=== PATIENT | female | born 1950 | race African-American/Black ===

== ENCOUNTER 2023-04-02 12:54 | Inpatient (IN) | payer MEDICARE, BC ==
[2023-04-02 13:47] LABS: #Basophils 0.1 thou/uL (0.0-0.2); #Eosinphils 0.2 thou/uL (0.0-0.7); #Monocytes 0.4 thou/uL (0.11-0.59); #Neutrophils 3.1 thou/uL (1.40-6.50); %Basophils 1.1 % (0.0-1.0); %Eosinophils 4.5 % (0.0-10.0); %Lymphocytes 17.5 % (21.0-51.0); %Monocytes 9.3 % (0.0-10.0); %Neutrophils 67.4 % (42.0-75.0); Hemoglobin 11.4 g/dL (12.0-16.0); Mean Corpuscular HGB CONC 32.2 g/dL (32.0-36.0); Mean Corpuscular Hemoglobin 32.6 pg (27.0-31.0); Mean Corpuscular Volume 101.1 fl (78.0-98.0); Mean Platelet Volume 9.6 fL (7.4-10.4); Platelet Count 166 10x3/uL (130-400); RBC Distribution Width 16.6 % (11.5-14.5); White Blood Cell (WBC) Count 4.6 10x3/uL (4.8-10.8)
[2023-04-02 14:07] LABS: ALT (SGPT) 8 U/L (8-55); AST (SGOT) 10 U/L (5-34); Albumin 3.8 g/dL (3.4-4.8); Alkaline Phosphatase 119 U/L (40-110); Anion Gap 20 mmol/L (10-20); BUN (Urea Nitrogen) 82 mg/dL (9.8-20.1); Bilirubin, Total 0.4 mg/dL (0.2-1.2); Calc. Creatinine Clearance 0 mL/min (70-130); Calcium 9.6 mg/dL (7.8-10.44); Carbon Dioxide 23 mmol/L (23-31); Chloride 100 mmol/L (98-107); Estimated GFR 4; Globulin 2.7 g/dL (2.4-3.5); Glucose 104 mg/dL (83-110); Potassium 4.4 mmol/L (3.5-5.1); Protein, Total 6.5 g/dL (5.8-8.1); Sodium 139 mmol/L (136-145)
[2023-04-02 14:08] LABS: INR-International Normal Ratio 1.1; PTT 28.3 sec (22.9-36.1); Prothrombin Time 14.5 sec (12.0-14.7)
[2023-04-02] MEDS ORDERED: Dextrose 50% Abboject 50 ML SYRINGE SLOW IVP PRN (16:08)
[2023-04-02] MEDS ORDERED: HumaLOG 300 UNITS/3 ML VIAL SC PRN ×2 (16:08)
[2023-04-02] MEDS ORDERED: Dextrose 5% in Water 1,000 ML IV PRN (16:08)
[2023-04-02] MEDS ORDERED: Ondansetron PF 4 MG/2 ML Vial IVP PRN (16:08)
[2023-04-02] MEDS ORDERED: Glucagon 1 MG/ML KIT IM PRN (16:08)
[2023-04-02] MEDS ORDERED: hydrALAZINE 20 MG/ML VIAL SLOW IVP PRN (16:08)
[2023-04-02] MEDS ORDERED: Ondansetron ODT 4 MG TAB PO PRN (16:08)
[2023-04-02 21:17] LABS: Hemoglobin 12.3 g/dL (12.0-16.0); Platelet Count 153 10x3/uL (130-400)
[2023-04-03] MEDS: Sodium Chloride 0.9% 1,000 ML IV SCH ×2 (00:13→21:10)
[2023-04-03 05:24] LABS: #Eosinphils 0.2 thou/uL (0.0-0.7); #Monocytes 0.4 thou/uL (0.11-0.59); #Neutrophils 2.9 thou/uL (1.40-6.50); %Basophils 0.9 % (0.0-1.0); %Eosinophils 4.7 % (0.0-10.0); %Lymphocytes 19.4 % (21.0-51.0); %Monocytes 9.9 % (0.0-10.0); %Neutrophils 65.1 % (42.0-75.0); Mean Corpuscular HGB CONC 32.4 g/dL (32.0-36.0); Mean Corpuscular Hemoglobin 32.6 pg (27.0-31.0); Mean Corpuscular Volume 100.6 fl (78.0-98.0); Mean Platelet Volume 9.7 fL (7.4-10.4); Platelet Count 149 10x3/uL (130-400); RBC Distribution Width 16.6 % (11.5-14.5); Red Blood Cell (RBC) Count 3.37 mill/uL (4.20-5.40); White Blood Cell (WBC) Count 4.4 10x3/uL (4.8-10.8)
[2023-04-03 05:43] LABS: Anion Gap 20 mmol/L (10-20); BUN (Urea Nitrogen) 81 mg/dL (9.8-20.1); Calc. Creatinine Clearance 7 mL/min (70-130); Calcium 9.3 mg/dL (7.8-10.44); Carbon Dioxide 19 mmol/L (23-31); Chloride 102 mmol/L (98-107); Estimated GFR 4; Glucose 79 mg/dL (83-110); Potassium 4.3 mmol/L (3.5-5.1); Sodium 137 mmol/L (136-145)
[2023-04-03] MEDS ORDERED: cloNIDine 0.2mg/24 Hour PATCH TD SCH (18:00)
[2023-04-03] MEDS: Sevelamer Carbonate 800 MG TAB PO SCH (19:33)
[2023-04-03] MEDS: Sertraline 25 MG TAB PO SCH (21:07)
[2023-04-03 23:59] LABS: HBSAg Index 0.15 S/CO (0-0.99); Hep B Core Total Ab Non-Reactive (NonReactive); Hep B Core Total Index 0.18 S/CO (0-0.79); Hep B Surf Ag Non-Reactive S/CO (NonReactive); Hep C IgG Ab Non-Reactive S/CO (NonReactive)
[2023-04-04 00:01] LABS: HBSAB Concentration 428.34 mIU/mL; Hep B Surf AB Reactive (NonReactive)
[2023-04-04] MEDS: Sevelamer Carbonate 800 MG TAB PO SCH ×3 (08:39→19:14)
[2023-04-04] MEDS: Hydrocortisone 10 mg Tablet PO SCH (08:39)
[2023-04-04] MEDS ORDERED: METOPROLOL SUCCINATE 25 MG PO SCH (09:00)
[2023-04-04] MEDS ORDERED: Metoprolol Tartrate 25 MG TAB PO SCH (16:30)
[2023-04-04] MEDS: Acetaminophen 325 MG TAB PO PRN (16:54)
[2023-04-04] MEDS ORDERED: GoLYTELY 4,000 ml Bottle PO SCH (17:00)
[2023-04-04] MEDS: Sodium Chloride 0.9% 1,000 ML IV SCH (19:26)
[2023-04-04] MEDS: Sertraline 25 MG TAB PO SCH (20:18)
[2023-04-05] MEDS: Acetaminophen 325 MG TAB PO PRN (00:31)
[2023-04-05] MEDS ORDERED: Methimazole 5 MG TAB PO SCH (09:00)
[2023-04-05] MEDS: Hydrocortisone 10 mg Tablet PO SCH (09:40)
[2023-04-05] MEDS: Sevelamer Carbonate 800 MG TAB PO SCH ×3 (09:41→16:35)
[2023-04-05 10:21] VITALS: BMI 26.9
[2023-04-05] MEDS: Sodium Chloride 0.9% 1,000 ML IV SCH (13:23)
[2023-04-05] MEDS: Sertraline 25 MG TAB PO SCH (21:01)
[2023-04-06 04:32] LABS: #Eosinphils 0.2 thou/uL (0.0-0.7); #Monocytes 0.4 thou/uL (0.11-0.59); #Neutrophils 2.4 thou/uL (1.40-6.50); %Eosinophils 4.4 % (0.0-10.0); %Monocytes 9.7 % (0.0-10.0); %Neutrophils 61.6 % (42.0-75.0); Mean Corpuscular HGB CONC 31.2 g/dL (32.0-36.0); Mean Corpuscular Volume 102.6 fl (78.0-98.0); Mean Platelet Volume 9.6 fL (7.4-10.4); Platelet Count 139 10x3/uL (130-400); RBC Distribution Width 15.5 % (11.5-14.5); Red Blood Cell (RBC) Count 3.44 mill/uL (4.20-5.40); White Blood Cell (WBC) Count 3.8 10x3/uL (4.8-10.8)
[2023-04-06 04:58] LABS: Anion Gap 16 mmol/L (10-20); BUN (Urea Nitrogen) 40 mg/dL (9.8-20.1); Calc. Creatinine Clearance 9 mL/min (70-130); Calcium 8.8 mg/dL (7.8-10.44); Carbon Dioxide 21 mmol/L (23-31); Chloride 104 mmol/L (98-107); Estimated GFR 6; Glucose 103 mg/dL (83-110); Potassium 4.2 mmol/L (3.5-5.1); Sodium 137 mmol/L (136-145)
[2023-04-06] MEDS ORDERED: Lidocaine-Prilocaine 2.5% Cream 5 GM TUBE TOP SCH (08:45)
[2023-04-06] MEDS: Hydrocortisone 10 mg Tablet PO SCH (09:37)
[2023-04-06] MEDS: Sevelamer Carbonate 800 MG TAB PO SCH ×3 (09:37→17:43)
[2023-04-06] MEDS: Sodium Chloride 0.9% 1,000 ML IV SCH (09:38)
[2023-04-06 15:27] LABS: #Eosinphils 0.2 thou/uL (0.0-0.7); #Monocytes 0.4 thou/uL (0.11-0.59); #Neutrophils 2.6 thou/uL (1.40-6.50); %Eosinophils 3.8 % (0.0-10.0); %Lymphocytes 18.7 % (21.0-51.0); %Monocytes 10.3 % (0.0-10.0); %Neutrophils 65.9 % (42.0-75.0); Hemoglobin 12.5 g/dL (12.0-16.0); Mean Corpuscular HGB CONC 31.7 g/dL (32.0-36.0); Mean Corpuscular Hemoglobin 32.6 pg (27.0-31.0); Mean Corpuscular Volume 102.9 fl (78.0-98.0); Mean Platelet Volume 9.8 fL (7.4-10.4); Platelet Count 134 10x3/uL (130-400); RBC Distribution Width 15.4 % (11.5-14.5); Red Blood Cell (RBC) Count 3.83 mill/uL (4.20-5.40); White Blood Cell (WBC) Count 3.9 10x3/uL (4.8-10.8)
[2023-04-06 15:56] LABS: Anion Gap 14 mmol/L (10-20); BUN (Urea Nitrogen) 15 mg/dL (9.8-20.1); Calc. Creatinine Clearance 18 mL/min (70-130); Calcium 9.3 mg/dL (7.8-10.44); Carbon Dioxide 29 mmol/L (23-31); Chloride 100 mmol/L (98-107); Estimated GFR 13; Glucose 88 mg/dL (83-110); Potassium 3.9 mmol/L (3.5-5.1); Sodium 139 mmol/L (136-145)
[2023-04-06 19:57] VITALS: BP 137/67; TEMP 98
== END 2023-04-06 20:25 | disposition home or self-care (01) | DRG 377 ==
LOC: ERS 12:54 → 2NO 15:29 → OBSVTOIN 04-03 15:02
PROVIDERS: ADMIT Internal Medicine; ATTEND Internal Medicine
PROC: 5A1D70Z Performance of Urinary Filtration, Intermittent, Less than 6 Hours Per Day (ICD-10-PCS; principal; 2023-04-06)
DX: K92.1 Melena (principal); N18.6 End stage renal disease; I13.2 Hypertensive heart and chronic kidney disease with heart failure and with stage 5 chronic kidney disease, or end stage renal disease; E11.22 Type 2 diabetes mellitus with diabetic chronic kidney disease; I25.10 Atherosclerotic heart disease of native coronary artery without angina pectoris; I50.9 Heart failure, unspecified; F03.90 Unspecified dementia, unspecified severity, without behavioral disturbance, psychotic disturbance, mood disturbance, and anxiety; E05.90 Thyrotoxicosis, unspecified without thyrotoxic crisis or storm; E78.5 Hyperlipidemia, unspecified; E78.00 Pure hypercholesterolemia, unspecified; Z88.8 Allergy status to other drugs, medicaments and biological substances; Z99.2 Dependence on renal dialysis; Z85.038 Personal history of other malignant neoplasm of large intestine; Z86.73 Personal history of transient ischemic attack (TIA), and cerebral infarction without residual deficits; Z90.710 Acquired absence of both cervix and uterus; Z90.49 Acquired absence of other specified parts of digestive tract; Z98.890 Other specified postprocedural states
CPT/HCPCS: 36415; 36416; 80048; 80053; 85025; 85610; 85730; 86704; 86850; 86900; 86901; 87324; 87449; 90935; 96374; 99284; G0257; G0378; J0360; J7050

== ENCOUNTER 2023-05-09 11:59 | Emergency (ER) | payer MEDICARE, BC ==
[2023-05-09 13:04] LABS: #Basophils 0.1 thou/uL (0.0-0.2); #Eosinphils 0.1 thou/uL (0.0-0.7); #Monocytes 0.4 thou/uL (0.11-0.59); #Neutrophils 2.9 thou/uL (1.40-6.50); %Basophils 1.1 % (0.0-1.0); %Eosinophils 2.1 % (0.0-10.0); %Monocytes 8.9 % (0.0-10.0); %Neutrophils 65.9 % (42.0-75.0); Hematocrit 40.1 % (36.0-47.0); Hemoglobin 13.1 g/dL (12.0-16.0); Mean Corpuscular HGB CONC 32.7 g/dL (32.0-36.0); Mean Corpuscular Volume 94.8 fl (78.0-98.0); Mean Platelet Volume 9.9 fL (7.4-10.4); Platelet Count 185 10x3/uL (130-400); RBC Distribution Width 14.9 % (11.5-14.5); Red Blood Cell (RBC) Count 4.23 mill/uL (4.20-5.40); White Blood Cell (WBC) Count 4.4 10x3/uL (4.8-10.8)
[2023-05-09 13:31] LABS: ALT (SGPT) 8 U/L (8-55); AST (SGOT) 13 U/L (5-34); Albumin 3.9 g/dL (3.4-4.8); Alkaline Phosphatase 84 U/L (40-110); Anion Gap 20 mmol/L (10-20); BUN (Urea Nitrogen) 74 mg/dL (9.8-20.1); Bilirubin, Total 0.3 mg/dL (0.2-1.2); Calc. Creatinine Clearance 0 mL/min (70-130); Calcium 9.7 mg/dL (7.8-10.44); Carbon Dioxide 25 mmol/L (23-31); Chloride 98 mmol/L (98-107); Estimated GFR 5; Globulin 3.3 g/dL (2.4-3.5); Glucose 112 mg/dL (83-110); Potassium 4.1 mmol/L (3.5-5.1); Protein, Total 7.2 g/dL (5.8-8.1); Sodium 139 mmol/L (136-145)
[2023-05-09 13:34] LABS: Troponin I Less than 0.010 ng/mL (< 0.028)
== END 2023-05-09 15:35 | disposition home or self-care (01) ==
LOC: ERS 11:59
DX: R53.81 Other malaise (principal); R05.9 Cough, unspecified; I13.2 Hypertensive heart and chronic kidney disease with heart failure and with stage 5 chronic kidney disease, or end stage renal disease; N18.6 End stage renal disease; I25.10 Atherosclerotic heart disease of native coronary artery without angina pectoris; I50.9 Heart failure, unspecified; E03.9 Hypothyroidism, unspecified; E78.00 Pure hypercholesterolemia, unspecified
CPT/HCPCS: 36415; 71045; 80053; 83880; 84484; 85025; 93005

== ENCOUNTER 2023-05-24 13:38 | Inpatient (IN) | payer MEDICARE, BC ==
[2023-05-24 14:39] LABS: #Eosinphils 0.1 thou/uL (0.0-0.7); #Monocytes 0.3 thou/uL (0.11-0.59); %Basophils 0.9 % (0.0-1.0); %Eosinophils 1.2 % (0.0-10.0); %Lymphocytes 20.5 % (21.0-51.0); %Monocytes 7.4 % (0.0-10.0); %Neutrophils 69.8 % (42.0-75.0); Hematocrit 42.9 % (36.0-47.0); Hemoglobin 13.9 g/dL (12.0-16.0); Mean Corpuscular HGB CONC 32.4 g/dL (32.0-36.0); Mean Corpuscular Hemoglobin 30.5 pg (27.0-31.0); Mean Corpuscular Volume 94.1 fl (78.0-98.0); Mean Platelet Volume 10.5 fL (7.4-10.4); Platelet Count 183 10x3/uL (130-400); RBC Distribution Width 14.6 % (11.5-14.5); Red Blood Cell (RBC) Count 4.56 mill/uL (4.20-5.40); White Blood Cell (WBC) Count 4.3 10x3/uL (4.8-10.8)
[2023-05-24] MEDS ORDERED: Ondansetron PF 4 MG/2 ML Vial ONE (14:56)
[2023-05-24] MEDS ORDERED: Acetaminophen 500 MG TAB ONE (14:56)
[2023-05-24 15:10] LABS: Troponin I Less than 0.010 ng/mL (< 0.028)
[2023-05-24 15:12] LABS: ALT (SGPT) 7 U/L (8-55); AST (SGOT) 13 U/L (5-34); Albumin 4.3 g/dL (3.4-4.8); Alkaline Phosphatase 79 U/L (40-110); Anion Gap 23 mmol/L (10-20); BUN (Urea Nitrogen) 44 mg/dL (9.8-20.1); Bilirubin, Total 0.6 mg/dL (0.2-1.2); Calc. Creatinine Clearance 0 mL/min (70-130); Calcium 9.8 mg/dL (7.8-10.44); Carbon Dioxide 24 mmol/L (23-31); Chloride 97 mmol/L (98-107); Estimated GFR 5; Globulin 3.5 g/dL (2.4-3.5); Glucose 67 mg/dL (83-110); Lipase 124 U/L (8-78); Potassium 4.4 mmol/L (3.5-5.1); Protein, Total 7.8 g/dL (5.8-8.1); Sodium 140 mmol/L (136-145)
[2023-05-24] MEDS ORDERED: fentaNYL 50 mcg/mL 1 mL Vial ONE (17:14)
[2023-05-24] MEDS ORDERED: hydrALAZINE 20 MG/ML VIAL ONE (18:53)
[2023-05-24 19:30] LABS: Bacteria/HPF None Seen HPF (None Seen); Bilirubin Negative (Negative); Blood, Urine Negative (Negative); CAUTI Indications for Culture Fever or rigors; Clarity Clear (Clear); Glucose, Urine (Dipstick) Normal (Negative); Ketone, Urine Trace mg/dL (Negative); Leukocyte Negative Leu/uL (Negative); Nitrite Negative (Negative); Protein, Urine (Dipstick) 70 mg/dL (Neg-Trace); RBC/HPF 0-3 HPF (0-3); Specific Gravity, Urine 1.008 (1.002-1.036); Urobilinogen Normal mg/dL (Less than 2); WBC/HPF 0-3 HPF (0-3); pH, Urine 8.5 (5.0-9.0)
[2023-05-24 19:32] LABS: Urine Culture Reflex No No
[2023-05-24] MEDS ORDERED: Piperacillin/Tazobactam 3.375 GM in Sodium Chloride 0.9% 100 ML IVPB SCH (22:15)
[2023-05-24] MEDS ORDERED: Vancomycin Diaylsis Sliding Scale (Wt 71-99) FS SCH (23:45)
[2023-05-24 23:51] VITALS: BMI 25.0
[2023-05-24] MEDS: Vancomycin 1.5 GRAM/300 ML BAG 1.5 GM in Premix Bag 1 BAG IVPB SCH (23:55)
[2023-05-24] MEDS: Piperacillin/Tazobactam 3.375 GM in Sodium Chloride 0.9% 100 ML IVPB SCH (23:55)
[2023-05-25] MEDS: Piperacillin/Tazobactam 3.375 GM in Sodium Chloride 0.9% 100 ML IVPB SCH (00:59)
[2023-05-25] MEDS: Vancomycin 1.5 GRAM/300 ML BAG 1.5 GM in Premix Bag 1 BAG IVPB SCH (01:00)
[2023-05-25] MEDS ORDERED: Piperacillin/Tazobactam 3.375 GM in Sodium Chloride 0.9% 100 ML IVPB SCH (05:00)
[2023-05-25] MEDS ORDERED: Dicyclomine 20 MG TAB PO PRN (08:11)
[2023-05-25] MEDS: Hydrocortisone 10 mg Tablet PO SCH (09:10)
[2023-05-25] MEDS: Sevelamer Carbonate 800 MG TAB PO SCH ×3 (09:10→16:42)
[2023-05-25] MEDS: Aspirin Chewable 81 MG TAB PO SCH (09:14)
[2023-05-25] MEDS: Losartan 25 MG TAB PO SCH (09:15)
[2023-05-25] MEDS ORDERED: traMADol HCl 50 MG TAB PO PRN (09:38)
[2023-05-25] MEDS ORDERED: Acetaminophen 325 MG TAB PO PRN (09:38)
[2023-05-25] MEDS ORDERED: HYDROcodone/Acetaminophen 5/325 mg Tablet PO PRN (11:59)
[2023-05-25] MEDS ORDERED: HYDROcodone/Acetaminophen 5/325 mg Tablet PO SCH (12:00)
[2023-05-25] MEDS ORDERED: Lidocaine 4% Patch TD SCH (12:00)
[2023-05-25] MEDS: Lidocaine 4% Patch TD SCH (13:00)
[2023-05-25] MEDS: Sertraline 25 MG TAB PO SCH (20:56)
[2023-05-26] MEDS: Transdermal Patch Removal TOP SCH (02:25)
[2023-05-26] MEDS: Hydrocortisone 10 mg Tablet PO SCH (08:42)
[2023-05-26] MEDS: Sevelamer Carbonate 800 MG TAB PO SCH ×3 (08:42→15:19)
[2023-05-26] MEDS: Losartan 25 MG TAB PO SCH (08:42)
[2023-05-26] MEDS: Aspirin Chewable 81 MG TAB PO SCH (08:42)
[2023-05-26] MEDS: Lidocaine 4% Patch TD SCH (12:17)
[2023-05-26 15:40] LABS: Hematocrit 37.9 % (36.0-47.0); Mean Corpuscular HGB CONC 31.7 g/dL (32.0-36.0); Mean Corpuscular Hemoglobin 30.2 pg (27.0-31.0); Mean Corpuscular Volume 95.2 fl (78.0-98.0); Mean Platelet Volume 10.2 fL (7.4-10.4); Platelet Count 164 10x3/uL (130-400); RBC Distribution Width 14.6 % (11.5-14.5); Red Blood Cell (RBC) Count 3.98 mill/uL (4.20-5.40); White Blood Cell (WBC) Count 6.2 10x3/uL (4.8-10.8)
[2023-05-26] MEDS ORDERED: GoLYTELY 4,000 ml Bottle PO SCH (16:00)
[2023-05-26 16:03] LABS: ALT (SGPT) Less than 7 U/L (8-55); AST (SGOT) 8 U/L (5-34); Albumin 3.4 g/dL (3.4-4.8); Alkaline Phosphatase 68 U/L (40-110); Anion Gap 16 mmol/L (10-20); BUN (Urea Nitrogen) 59 mg/dL (9.8-20.1); Bilirubin, Total 0.4 mg/dL (0.2-1.2); Calc. Creatinine Clearance 6 mL/min (70-130); Calcium 9.1 mg/dL (7.8-10.44); Carbon Dioxide 27 mmol/L (23-31); Chloride 97 mmol/L (98-107); Estimated GFR 4; Glucose 112 mg/dL (83-110); Phosphorus 5.8 mg/dL (2.3-4.7); Protein, Total 6.4 g/dL (5.8-8.1); Sodium 136 mmol/L (136-145)
[2023-05-26 16:13] LABS: Troponin I Less than 0.010 ng/mL (< 0.028)
[2023-05-26 18:38] LABS: Anion Gap 15 mmol/L (10-20); BUN (Urea Nitrogen) 21 mg/dL (9.8-20.1); Calc. Creatinine Clearance 14 mL/min (70-130); Calcium 9.8 mg/dL (7.8-10.44); Carbon Dioxide 27 mmol/L (23-31); Chloride 95 mmol/L (98-107); Estimated GFR 10; Glucose 83 mg/dL (83-110); Potassium 2.8 mmol/L (3.5-5.1); Sodium 134 mmol/L (136-145)
[2023-05-26] MEDS: Sertraline 25 MG TAB PO SCH (23:00)
[2023-05-27] MEDS: Transdermal Patch Removal TOP SCH (03:09)
[2023-05-27 05:32] LABS: #Basophils 0.1 thou/uL (0.0-0.2); #Eosinphils 0.1 thou/uL (0.0-0.7); #Monocytes 0.4 thou/uL (0.11-0.59); #Neutrophils 3.7 thou/uL (1.40-6.50); %Basophils 1.3 % (0.0-1.0); %Eosinophils 2.5 % (0.0-10.0); %Lymphocytes 17.4 % (21.0-51.0); %Monocytes 8.4 % (0.0-10.0); %Neutrophils 70.2 % (42.0-75.0); Hematocrit 40.6 % (36.0-47.0); Hemoglobin 12.7 g/dL (12.0-16.0); Mean Corpuscular HGB CONC 31.3 g/dL (32.0-36.0); Mean Corpuscular Hemoglobin 30.2 pg (27.0-31.0); Mean Corpuscular Volume 96.7 fl (78.0-98.0); Mean Platelet Volume 9.9 fL (7.4-10.4); Platelet Count 154 10x3/uL (130-400); RBC Distribution Width 14.6 % (11.5-14.5); White Blood Cell (WBC) Count 5.2 10x3/uL (4.8-10.8)
[2023-05-27 06:33] LABS: Anion Gap 13 mmol/L (10-20); BUN (Urea Nitrogen) 36 mg/dL (9.8-20.1); Calc. Creatinine Clearance 8 mL/min (70-130); Calcium 9.5 mg/dL (7.8-10.44); Carbon Dioxide 25 mmol/L (23-31); Chloride 96 mmol/L (98-107); Estimated GFR 5; Glucose 82 mg/dL (83-110); Potassium 3.8 mmol/L (3.5-5.1); Sodium 130 mmol/L (136-145)
[2023-05-27] MEDS ORDERED: Lidocaine 1% MPF 2 ML VIAL ONE (07:52)
[2023-05-27] MEDS ORDERED: Ketamine 50 MG/ML (10ML VIAL) ONE (08:18)
[2023-05-27] MEDS ORDERED: Lidocaine 1% PF 5 ML VIAL ONE (08:26)
[2023-05-27] MEDS ORDERED: PROPOFOL 200 MG/20 ML VIAL ONE (08:26)
[2023-05-27] MEDS: Sevelamer Carbonate 800 MG TAB PO SCH ×3 (11:29→18:22)
[2023-05-27] MEDS: Aspirin Chewable 81 MG TAB PO SCH (11:29)
[2023-05-27] MEDS: Hydrocortisone 10 mg Tablet PO SCH (11:29)
[2023-05-27] MEDS: Losartan 25 MG TAB PO SCH (11:30)
[2023-05-27] MEDS: Lidocaine 4% Patch TD SCH (14:25)
[2023-05-27] MEDS: Sertraline 25 MG TAB PO SCH (22:48)
[2023-05-28] MEDS: Transdermal Patch Removal TOP SCH (01:44)
[2023-05-28] MEDS ORDERED: Sucralfate 1 GM TAB PO SCH (08:30)
[2023-05-28] MEDS: Hydrocortisone 10 mg Tablet PO SCH (08:53)
[2023-05-28] MEDS: Aspirin Chewable 81 MG TAB PO SCH (08:54)
[2023-05-28] MEDS: Sevelamer Carbonate 800 MG TAB PO SCH ×3 (08:54→17:58)
[2023-05-28] MEDS: Losartan 25 MG TAB PO SCH (08:57)
[2023-05-28 11:59] LABS: #Eosinphils 0.1 thou/uL (0.0-0.7); #Monocytes 0.6 thou/uL (0.11-0.59); #Neutrophils 7.3 thou/uL (1.40-6.50); %Basophils 0.4 % (0.0-1.0); %Lymphocytes 9.9 % (21.0-51.0); %Monocytes 7.1 % (0.0-10.0); %Neutrophils 81.5 % (42.0-75.0); Hematocrit 40.2 % (36.0-47.0); Hemoglobin 12.7 g/dL (12.0-16.0); Mean Corpuscular HGB CONC 31.6 g/dL (32.0-36.0); Mean Corpuscular Hemoglobin 30.2 pg (27.0-31.0); Mean Corpuscular Volume 95.7 fl (78.0-98.0); Mean Platelet Volume 10.1 fL (7.4-10.4); Platelet Count 151 10x3/uL (130-400); RBC Distribution Width 14.7 % (11.5-14.5); White Blood Cell (WBC) Count 8.9 10x3/uL (4.8-10.8)
[2023-05-28] MEDS: Sucralfate 1 GM TAB PO SCH ×2 (12:16→17:58)
[2023-05-28] MEDS: Lidocaine 4% Patch TD SCH (12:16)
[2023-05-28 13:30] LABS: Anion Gap 18 mmol/L (10-20); BUN (Urea Nitrogen) 49 mg/dL (9.8-20.1); Calc. Creatinine Clearance 7 mL/min (70-130); Calcium 9.4 mg/dL (7.8-10.44); Carbon Dioxide 25 mmol/L (23-31); Chloride 96 mmol/L (98-107); Estimated GFR 4; Glucose 102 mg/dL (83-110); Potassium 3.8 mmol/L (3.5-5.1); Sodium 135 mmol/L (136-145)
[2023-05-28 16:12] VITALS: BP 96/54; TEMP 98.7
[2023-05-31] MEDS ORDERED: cloNIDine 0.2mg/24 Hour PATCH TD SCH (09:00)
== END 2023-05-28 19:22 | DRG 380 ==
LOC: ERS 13:38 → 2SE 21:16 → OBSVTOIN 05-25 17:24
PROVIDERS: ADMIT Internal Medicine Nephrology; ATTEND Family Medicine
PROC: 5A1D70Z Performance of Urinary Filtration, Intermittent, Less than 6 Hours Per Day (ICD-10-PCS; 2023-05-26)
PROC: 0DB98ZX Excision of Duodenum, Via Natural or Artificial Opening Endoscopic, Diagnostic (ICD-10-PCS; principal; 2023-05-27)
PROC: 0DB78ZX Excision of Stomach, Pylorus, Via Natural or Artificial Opening Endoscopic, Diagnostic (ICD-10-PCS; 2023-05-27)
DX: K22.11 Ulcer of esophagus with bleeding (principal); N18.6 End stage renal disease; E87.1 Hypo-osmolality and hyponatremia; I13.2 Hypertensive heart and chronic kidney disease with heart failure and with stage 5 chronic kidney disease, or end stage renal disease; K29.71 Gastritis, unspecified, with bleeding; K29.81 Duodenitis with bleeding; I25.10 Atherosclerotic heart disease of native coronary artery without angina pectoris; I50.9 Heart failure, unspecified; E11.22 Type 2 diabetes mellitus with diabetic chronic kidney disease; E03.9 Hypothyroidism, unspecified; F03.90 Unspecified dementia, unspecified severity, without behavioral disturbance, psychotic disturbance, mood disturbance, and anxiety; E78.5 Hyperlipidemia, unspecified; D63.1 Anemia in chronic kidney disease; Z88.8 Allergy status to other drugs, medicaments and biological substances; Z79.82 Long term (current) use of aspirin; Z79.899 Other long term (current) drug therapy; Z85.038 Personal history of other malignant neoplasm of large intestine; Z99.2 Dependence on renal dialysis; Z86.73 Personal history of transient ischemic attack (TIA), and cerebral infarction without residual deficits; Z90.710 Acquired absence of both cervix and uterus; Z90.49 Acquired absence of other specified parts of digestive tract; Z98.890 Other specified postprocedural states; E87.5 Hyperkalemia
CPT/HCPCS: 36415; 36416; 70450; 71045; 74176; 80048; 80053; 81001; 82274; 83605; 83690; 84100; 84484; 84550; 85025; 85027; 87040; 88305; 88342; 90935; 93005; 96374; 96375; G0257; G0378; J0360; J2405; J2543; J2704; J3010; J3370; J3490

== ENCOUNTER 2023-09-16 15:43 | Inpatient (IN) | payer MEDICARE, BC ==
[2023-09-16 16:47] LABS: #Eosinphils 0.2 thou/uL (0.0-0.7); #Monocytes 0.4 thou/uL (0.11-0.59); #Neutrophils 4.1 thou/uL (1.40-6.50); %Basophils 0.7 % (0.0-1.0); %Eosinophils 3.3 % (0.0-10.0); %Lymphocytes 13.7 % (21.0-51.0); %Monocytes 7.3 % (0.0-10.0); %Neutrophils 74.8 % (42.0-75.0); Hematocrit 34.5 % (36.0-47.0); Hemoglobin 10.8 g/dL (12.0-16.0); Mean Corpuscular HGB CONC 31.3 g/dL (32.0-36.0); Mean Corpuscular Hemoglobin 30.7 pg (27.0-31.0); Mean Platelet Volume 9.9 fL (7.4-10.4); Platelet Count 163 10x3/uL (130-400); RBC Distribution Width 15.1 % (11.5-14.5); Red Blood Cell (RBC) Count 3.52 mill/uL (4.20-5.40); White Blood Cell (WBC) Count 5.5 10x3/uL (4.8-10.8)
[2023-09-16 17:14] LABS: ALT (SGPT) 14 U/L (8-55); AST (SGOT) 16 U/L (5-34); Albumin 3.8 g/dL (3.4-4.8); Alkaline Phosphatase 146 U/L (40-110); Anion Gap 16 mmol/L (10-20); BUN (Urea Nitrogen) 46 mg/dL (9.8-20.1); Bilirubin, Total 0.5 mg/dL (0.2-1.2); Calc. Creatinine Clearance 0 mL/min (70-130); Calcium 9.3 mg/dL (7.8-10.44); Carbon Dioxide 28 mmol/L (23-31); Chloride 99 mmol/L (98-107); Estimated GFR 5; Globulin 3.1 g/dL (2.4-3.5); Glucose 141 mg/dL (83-110); Lipase 183 U/L (8-78); Potassium 3.6 mmol/L (3.5-5.1); Protein, Total 6.9 g/dL (5.8-8.1); Sodium 139 mmol/L (136-145)
[2023-09-16 17:17] LABS: Troponin I Less than 0.010 ng/mL (< 0.028)
[2023-09-16] MEDS ORDERED: Metoprolol Tartrate 25 MG TAB ONE (21:42)
[2023-09-16] MEDS ORDERED: hydrALAZINE 20 MG/ML VIAL ONE (22:48)
[2023-09-16] MEDS ORDERED: Dextrose 50% Abboject 50 ML SYRINGE SLOW IVP PRN (22:56)
[2023-09-16] MEDS ORDERED: Glucagon 1 MG/ML KIT IM PRN (22:56)
[2023-09-16] MEDS ORDERED: Dextrose 5% in Water 1,000 ML IV PRN (22:56)
[2023-09-16] MEDS ORDERED: HumaLOG 300 UNITS/3 ML VIAL SC PRN ×2 (22:59)
[2023-09-17] MEDS ORDERED: hydrALAZINE 20 MG/ML VIAL SLOW IVP PRN (01:55)
[2023-09-17 02:22] VITALS: BMI 25.4
[2023-09-17] MEDS: Hydrocortisone 10 mg Tablet PO SCH (08:58)
[2023-09-17] MEDS: Heparin 5,000 UNITS/ML VIAL SC SCH ×3 (08:58→21:25)
[2023-09-17] MEDS: Sucralfate 1 GM TAB PO SCH ×4 (08:59→21:26)
[2023-09-17] MEDS: Aspirin Chewable 81 MG TAB PO SCH (08:59)
[2023-09-17] MEDS ORDERED: Tuberculin PPD 0.1 ML VIAL I-DERMAL SCH ×2 (09:00)
[2023-09-17] MEDS ORDERED: Heparin 10,000 UNITS/ 10 ML VIAL ONE (09:20)
[2023-09-17 09:29] LABS: #Basophils 0.1 thou/uL (0.0-0.2); #Eosinphils 0.2 thou/uL (0.0-0.7); #Monocytes 0.4 thou/uL (0.11-0.59); #Neutrophils 3.3 thou/uL (1.40-6.50); %Eosinophils 3.7 % (0.0-10.0); %Lymphocytes 17.5 % (21.0-51.0); %Neutrophils 68.6 % (42.0-75.0); Hematocrit 34.6 % (36.0-47.0); Hemoglobin 10.8 g/dL (12.0-16.0); Mean Corpuscular HGB CONC 31.2 g/dL (32.0-36.0); Mean Corpuscular Hemoglobin 30.8 pg (27.0-31.0); Mean Corpuscular Volume 98.6 fl (78.0-98.0); Mean Platelet Volume 10.3 fL (7.4-10.4); Platelet Count 162 10x3/uL (130-400); RBC Distribution Width 15.1 % (11.5-14.5); Red Blood Cell (RBC) Count 3.51 mill/uL (4.20-5.40); White Blood Cell (WBC) Count 4.9 10x3/uL (4.8-10.8)
[2023-09-17 09:56] LABS: Magnesium 2.1 mg/dL (1.6-2.6); Phosphorus 4.9 mg/dL (2.3-4.7)
[2023-09-17] MEDS ORDERED: Amlodipine 5 MG TAB PO SCH (10:00)
[2023-09-17 10:03] LABS: ALT (SGPT) 10 U/L (8-55); AST (SGOT) 10 U/L (5-34); Albumin 3.3 g/dL (3.4-4.8); Alkaline Phosphatase 123 U/L (40-110); Anion Gap 15 mmol/L (10-20); BUN (Urea Nitrogen) 48 mg/dL (9.8-20.1); Bilirubin, Total 0.5 mg/dL (0.2-1.2); Calc. Creatinine Clearance 8 mL/min (70-130); Calcium 8.9 mg/dL (7.8-10.44); Carbon Dioxide 24 mmol/L (23-31); Chloride 102 mmol/L (98-107); Estimated GFR 5; Globulin 2.8 g/dL (2.4-3.5); Glucose 108 mg/dL (83-110); Potassium 4.1 mmol/L (3.5-5.1); Protein, Total 6.1 g/dL (5.8-8.1); Sodium 137 mmol/L (136-145)
[2023-09-17] MEDS: Methimazole 5 MG TAB PO SCH ×3 (10:06→21:31)
[2023-09-17] MEDS: Sertraline 25 MG TAB PO SCH (21:26)
[2023-09-17] MEDS: Gabapentin 100 MG CAP PO SCH (21:26)
[2023-09-18 08:34] LABS: #Basophils 0.1 thou/uL (0.0-0.2); #Eosinphils 0.2 thou/uL (0.0-0.7); #Monocytes 0.4 thou/uL (0.11-0.59); #Neutrophils 2.2 thou/uL (1.40-6.50); %Basophils 1.6 % (0.0-1.0); %Eosinophils 4.6 % (0.0-10.0); %Lymphocytes 22.4 % (21.0-51.0); %Monocytes 10.1 % (0.0-10.0); Hematocrit 34.3 % (36.0-47.0); Hemoglobin 10.8 g/dL (12.0-16.0); Mean Corpuscular HGB CONC 31.5 g/dL (32.0-36.0); Mean Corpuscular Hemoglobin 31.1 pg (27.0-31.0); Mean Corpuscular Volume 98.8 fl (78.0-98.0); Platelet Count 154 10x3/uL (130-400); RBC Distribution Width 14.9 % (11.5-14.5); Red Blood Cell (RBC) Count 3.47 mill/uL (4.20-5.40); White Blood Cell (WBC) Count 3.7 10x3/uL (4.8-10.8)
[2023-09-18 08:53] LABS: ALT (SGPT) 7 U/L (8-55); AST (SGOT) 9 U/L (5-34); Albumin 3.4 g/dL (3.4-4.8); Alkaline Phosphatase 89 U/L (40-110); Anion Gap 15 mmol/L (10-20); BUN (Urea Nitrogen) 25 mg/dL (9.8-20.1); Bilirubin, Total 0.5 mg/dL (0.2-1.2); Calc. Creatinine Clearance 11 mL/min (70-130); Calcium 9.1 mg/dL (7.8-10.44); Carbon Dioxide 29 mmol/L (23-31); Chloride 97 mmol/L (98-107); Estimated GFR 7; Glucose 85 mg/dL (83-110); Potassium 3.7 mmol/L (3.5-5.1); Protein, Total 6.4 g/dL (5.8-8.1); Sodium 137 mmol/L (136-145)
[2023-09-18] MEDS: Hydrocortisone 10 mg Tablet PO SCH (09:16)
[2023-09-18] MEDS: Heparin 5,000 UNITS/ML VIAL SC SCH ×3 (09:17→20:52)
[2023-09-18] MEDS: Amlodipine 5 MG TAB PO SCH (09:17)
[2023-09-18] MEDS: Sucralfate 1 GM TAB PO SCH ×5 (09:17→20:52)
[2023-09-18] MEDS: Aspirin Chewable 81 MG TAB PO SCH (09:17)
[2023-09-18] MEDS: Methimazole 5 MG TAB PO SCH ×3 (09:17→20:52)
[2023-09-18 13:51] LABS: Hep B Core Total Ab Non-Reactive (NonReactive); Hep B Core Total Index 0.23 S/CO (0-0.79)
[2023-09-18 13:52] LABS: HBSAg Index 0.17 S/CO (0-0.99); Hep B Surf Ag Non-Reactive S/CO (NonReactive)
[2023-09-18 13:54] LABS: Hep B Surf AB Reactive (NonReactive)
[2023-09-18 13:55] LABS: Hep C IgG Ab Non-Reactive S/CO (NonReactive); Hep C Index 0.11 S/CO (0-0.79)
[2023-09-18] MEDS: Sertraline 25 MG TAB PO SCH (20:52)
[2023-09-18] MEDS: Gabapentin 100 MG CAP PO SCH (20:52)
[2023-09-19] MEDS ORDERED: READ PPD TEST SITE PO SCH (09:00)
[2023-09-19 09:35] LABS: #Eosinphils 0.2 thou/uL (0.0-0.7); #Monocytes 0.3 thou/uL (0.11-0.59); #Neutrophils 2.5 thou/uL (1.40-6.50); %Basophils 1.1 % (0.0-1.0); %Eosinophils 6.1 % (0.0-10.0); %Lymphocytes 18.2 % (21.0-51.0); %Monocytes 8.7 % (0.0-10.0); %Neutrophils 65.6 % (42.0-75.0); Hematocrit 33.9 % (36.0-47.0); Mean Corpuscular HGB CONC 32.4 g/dL (32.0-36.0); Mean Corpuscular Hemoglobin 31.6 pg (27.0-31.0); Mean Corpuscular Volume 97.4 fl (78.0-98.0); Mean Platelet Volume 9.8 fL (7.4-10.4); Platelet Count 170 10x3/uL (130-400); RBC Distribution Width 14.6 % (11.5-14.5); Red Blood Cell (RBC) Count 3.48 mill/uL (4.20-5.40); White Blood Cell (WBC) Count 3.8 10x3/uL (4.8-10.8)
[2023-09-19] MEDS ORDERED: Heparin 10,000 UNITS/ 10 ML VIAL ONE (09:36)
[2023-09-19 09:54] LABS: Phosphorus 4.5 mg/dL (2.3-4.7)
[2023-09-19 09:55] LABS: ALT (SGPT) 7 U/L (8-55); AST (SGOT) 9 U/L (5-34); Albumin 3.5 g/dL (3.4-4.8); Alkaline Phosphatase 91 U/L (40-110); Anion Gap 14 mmol/L (10-20); BUN (Urea Nitrogen) 42 mg/dL (9.8-20.1); Bilirubin, Total 0.4 mg/dL (0.2-1.2); Calc. Creatinine Clearance 8 mL/min (70-130); Calcium 9.1 mg/dL (7.8-10.44); Carbon Dioxide 28 mmol/L (23-31); Chloride 99 mmol/L (98-107); Estimated GFR 5; Globulin 2.9 g/dL (2.4-3.5); Glucose 108 mg/dL (83-110); Magnesium 2.2 mg/dL (1.6-2.6); Potassium 3.9 mmol/L (3.5-5.1); Protein, Total 6.4 g/dL (5.8-8.1); Sodium 137 mmol/L (136-145)
[2023-09-19 10:13] LABS: Thyroid Stimulating Hormone 1.1101 uIU/mL (0.35-4.94)
[2023-09-19 11:00] LABS: Free T4 (Free Thyroxine) 0.66 ng/dL (0.70-1.48)
[2023-09-19] MEDS: Sucralfate 1 GM TAB PO SCH ×4 (13:59→20:01)
[2023-09-19] MEDS: Methimazole 5 MG TAB PO SCH ×3 (14:00→20:01)
[2023-09-19] MEDS: Heparin 5,000 UNITS/ML VIAL SC SCH ×3 (14:00→20:03)
[2023-09-19] MEDS: Hydrocortisone 10 mg Tablet PO SCH (14:15)
[2023-09-19] MEDS: Amlodipine 5 MG TAB PO SCH (14:15)
[2023-09-19] MEDS: Aspirin Chewable 81 MG TAB PO SCH (14:16)
[2023-09-19] MEDS: Sertraline 25 MG TAB PO SCH (20:01)
[2023-09-19] MEDS: Gabapentin 100 MG CAP PO SCH (20:01)
[2023-09-20] MEDS: Hydrocortisone 10 mg Tablet PO SCH (08:26)
[2023-09-20] MEDS: Sucralfate 1 GM TAB PO SCH ×4 (08:26→20:22)
[2023-09-20] MEDS: Methimazole 5 MG TAB PO SCH ×3 (08:26→20:21)
[2023-09-20] MEDS: Aspirin Chewable 81 MG TAB PO SCH (08:27)
[2023-09-20] MEDS: Amlodipine 5 MG TAB PO SCH (08:28)
[2023-09-20] MEDS: Heparin 5,000 UNITS/ML VIAL SC SCH ×3 (08:28→20:24)
[2023-09-20 09:34] LABS: ALT (SGPT) 9 U/L (8-55); AST (SGOT) 15 U/L (5-34); Albumin 3.5 g/dL (3.4-4.8); Alkaline Phosphatase 115 U/L (40-110); Anion Gap 15 mmol/L (10-20); BUN (Urea Nitrogen) 28 mg/dL (9.8-20.1); Bilirubin, Total 0.3 mg/dL (0.2-1.2); Calc. Creatinine Clearance 11 mL/min (70-130); Calcium 9.1 mg/dL (7.8-10.44); Carbon Dioxide 24 mmol/L (23-31); Chloride 102 mmol/L (98-107); Estimated GFR 7; Globulin 3.3 g/dL (2.4-3.5); Glucose 87 mg/dL (83-110); Magnesium 2.1 mg/dL (1.6-2.6); Potassium 4.7 mmol/L (3.5-5.1); Protein, Total 6.8 g/dL (5.8-8.1); Sodium 136 mmol/L (136-145)
[2023-09-20] MEDS: Acetaminophen 325 MG TAB PO PRN (20:21)
[2023-09-20] MEDS: Gabapentin 100 MG CAP PO SCH (20:21)
[2023-09-20] MEDS: Sertraline 25 MG TAB PO SCH (20:22)
[2023-09-21] MEDS: Sucralfate 1 GM TAB PO SCH ×4 (08:09→20:16)
[2023-09-21] MEDS: Heparin 5,000 UNITS/ML VIAL SC SCH ×3 (09:52→20:12)
[2023-09-21] MEDS: Methimazole 5 MG TAB PO SCH ×3 (09:53→20:16)
[2023-09-21 10:04] LABS: #Basophils 0.1 thou/uL (0.0-0.2); #Eosinphils 0.4 thou/uL (0.0-0.7); #Monocytes 0.4 thou/uL (0.11-0.59); #Neutrophils 2.3 thou/uL (1.40-6.50); %Basophils 1.3 % (0.0-1.0); %Eosinophils 9.4 % (0.0-10.0); %Lymphocytes 20.7 % (21.0-51.0); %Monocytes 9.4 % (0.0-10.0); %Neutrophils 58.9 % (42.0-75.0); Hematocrit 33.5 % (36.0-47.0); Hemoglobin 10.6 g/dL (12.0-16.0); Mean Corpuscular HGB CONC 31.6 g/dL (32.0-36.0); Mean Corpuscular Hemoglobin 30.9 pg (27.0-31.0); Mean Corpuscular Volume 97.7 fl (78.0-98.0); Mean Platelet Volume 9.4 fL (7.4-10.4); Platelet Count 164 10x3/uL (130-400); RBC Distribution Width 14.5 % (11.5-14.5); Red Blood Cell (RBC) Count 3.43 mill/uL (4.20-5.40); White Blood Cell (WBC) Count 3.8 10x3/uL (4.8-10.8)
[2023-09-21 10:26] LABS: Phosphorus 3.5 mg/dL (2.3-4.7)
[2023-09-21 10:29] LABS: ALT (SGPT) 11 U/L (8-55); AST (SGOT) 11 U/L (5-34); Albumin 3.1 g/dL (3.4-4.8); Alkaline Phosphatase 102 U/L (40-110); Anion Gap 15 mmol/L (10-20); BUN (Urea Nitrogen) 47 mg/dL (9.8-20.1); Bilirubin, Total 0.4 mg/dL (0.2-1.2); Calc. Creatinine Clearance 9 mL/min (70-130); Calcium 8.9 mg/dL (7.8-10.44); Carbon Dioxide 26 mmol/L (23-31); Chloride 102 mmol/L (98-107); Estimated GFR 5; Globulin 2.9 g/dL (2.4-3.5); Glucose 91 mg/dL (83-110); Magnesium 2.1 mg/dL (1.6-2.6); Potassium 4.6 mmol/L (3.5-5.1); Sodium 138 mmol/L (136-145)
[2023-09-21] MEDS: Aspirin Chewable 81 MG TAB PO SCH (13:21)
[2023-09-21] MEDS: Hydrocortisone 10 mg Tablet PO SCH (13:22)
[2023-09-21] MEDS: Amlodipine 5 MG TAB PO SCH (13:22)
[2023-09-21] MEDS: Acetaminophen 325 MG TAB PO PRN (13:30)
[2023-09-21] MEDS: Gabapentin 100 MG CAP PO SCH (20:16)
[2023-09-21] MEDS: Sertraline 25 MG TAB PO SCH (20:16)
[2023-09-22] MEDS: Sucralfate 1 GM TAB PO SCH ×2 (08:52→13:50)
[2023-09-22] MEDS ORDERED: Heparin 10,000 UNITS/ 10 ML VIAL ONE (08:54)
[2023-09-22] MEDS: Hydrocortisone 10 mg Tablet PO SCH (10:35)
[2023-09-22] MEDS: Amlodipine 5 MG TAB PO SCH (10:36)
[2023-09-22] MEDS: Aspirin Chewable 81 MG TAB PO SCH (10:36)
[2023-09-22] MEDS: Heparin 5,000 UNITS/ML VIAL SC SCH ×3 (10:37→13:52)
[2023-09-22] MEDS: Methimazole 5 MG TAB PO SCH ×2 (10:40→16:13)
[2023-09-22 16:05] VITALS: BP 123/73; TEMP 98.4
== END 2023-09-22 17:15 | DRG 947 ==
LOC: ERS 15:43 → 2SW 22:30 → OBSVTOIN 09-17 12:16
PROVIDERS: ADMIT Family Medicine; ATTEND Family Medicine
PROC: 5A1D70Z Performance of Urinary Filtration, Intermittent, Less than 6 Hours Per Day (ICD-10-PCS; principal; 2023-09-17)
DX: R53.81 Other malaise (principal); N18.6 End stage renal disease; I13.2 Hypertensive heart and chronic kidney disease with heart failure and with stage 5 chronic kidney disease, or end stage renal disease; I25.10 Atherosclerotic heart disease of native coronary artery without angina pectoris; E78.00 Pure hypercholesterolemia, unspecified; F03.90 Unspecified dementia, unspecified severity, without behavioral disturbance, psychotic disturbance, mood disturbance, and anxiety; E11.22 Type 2 diabetes mellitus with diabetic chronic kidney disease; I16.0 Hypertensive urgency; D63.1 Anemia in chronic kidney disease; Z86.73 Personal history of transient ischemic attack (TIA), and cerebral infarction without residual deficits; Z90.49 Acquired absence of other specified parts of digestive tract; Z98.890 Other specified postprocedural states; Z99.2 Dependence on renal dialysis; Z88.5 Allergy status to narcotic agent; Z79.82 Long term (current) use of aspirin; Z79.899 Other long term (current) drug therapy
CPT/HCPCS: 36415; 36416; 71045; 74176; 80053; 83036; 83690; 83735; 84100; 84439; 84443; 84484; 85025; 86580; 86704; 90935; 93005; 96372; 96374; G0257; G0378; J0360; J1644

== ENCOUNTER 2023-10-11 10:53 | Inpatient (IN) | payer OTHER, MEDICARE, BC ==
[2023-10-11 11:29] LABS: #Eosinphils 0.2 thou/uL (0.0-0.7); #Monocytes 0.4 thou/uL (0.11-0.59); #Neutrophils 2.2 thou/uL (1.40-6.50); %Basophils 1.1 % (0.0-1.0); %Eosinophils 5.2 % (0.0-10.0); %Lymphocytes 21.2 % (21.0-51.0); %Monocytes 10.6 % (0.0-10.0); %Neutrophils 61.6 % (42.0-75.0); Hematocrit 34.2 % (36.0-47.0); Hemoglobin 10.8 g/dL (12.0-16.0); Mean Corpuscular HGB CONC 31.6 g/dL (32.0-36.0); Mean Corpuscular Hemoglobin 30.9 pg (27.0-31.0); Mean Corpuscular Volume 97.7 fl (78.0-98.0); Mean Platelet Volume 9.3 fL (7.4-10.4); Platelet Count 155 10x3/uL (130-400); RBC Distribution Width 14.8 % (11.5-14.5); White Blood Cell (WBC) Count 3.5 10x3/uL (4.8-10.8)
[2023-10-11] MEDS ORDERED: Amlodipine 5 MG TAB ONE ×2 (11:29→14:16)
[2023-10-11] MEDS ORDERED: Metoprolol Tartrate 50 MG TAB ONE ×2 (11:29→14:16)
[2023-10-11 11:55] LABS: ALT (SGPT) 7 U/L (8-55); AST (SGOT) 10 U/L (5-34); Albumin 3.7 g/dL (3.4-4.8); Alkaline Phosphatase 104 U/L (40-110); Anion Gap 12 mmol/L (10-20); BUN (Urea Nitrogen) 20 mg/dL (9.8-20.1); Bilirubin, Total 0.5 mg/dL (0.2-1.2); Calc. Creatinine Clearance 0 mL/min (70-130); Calcium 9.1 mg/dL (7.8-10.44); Carbon Dioxide 28 mmol/L (23-31); Chloride 103 mmol/L (98-107); Estimated GFR 6; Globulin 2.9 g/dL (2.4-3.5); Glucose 80 mg/dL (83-110); Lipase 79 U/L (8-78); Potassium 3.1 mmol/L (3.5-5.1); Protein, Total 6.6 g/dL (5.8-8.1); Sodium 140 mmol/L (136-145)
[2023-10-11 11:58] LABS: Troponin I Less than 0.010 ng/mL (< 0.028)
[2023-10-11] MEDS ORDERED: Acetaminophen 500 MG TAB ONE (16:04)
[2023-10-11] MEDS ORDERED: hydrALAZINE 20 MG/ML VIAL ONE (16:04)
[2023-10-11 16:36] LABS: Bilirubin Negative (Negative); Blood, Urine 1+ (Negative); CAUTI Indications for Culture Pelvic or flank pain; Clarity Clear (Clear); Glucose, Urine (Dipstick) Normal (Negative); Ketone, Urine Negative (Negative); Leukocyte Negative Leu/uL (Negative); Nitrite Negative (Negative); Protein, Urine (Dipstick) 100 mg/dL (Neg-Trace); RBC/HPF 0-3 HPF (0-3); Specific Gravity, Urine 1.006 (1.002-1.036); Squamous Epithelial 0-3 HPF (0-3); Urobilinogen Normal mg/dL (Less than 2); WBC/HPF 0-3 HPF (0-3)
[2023-10-11 16:39] LABS: Bacteria/HPF 1+ HPF (None Seen)
[2023-10-11 16:40] LABS: Urine Culture Reflex No No
[2023-10-11] MEDS ORDERED: Ondansetron PF 4 MG/2 ML Vial IVP PRN (18:24)
[2023-10-11] MEDS ORDERED: Ondansetron ODT 4 MG TAB PO PRN (18:24)
[2023-10-11] MEDS ORDERED: Acetaminophen 650 MG Suppository PR PRN (18:24)
[2023-10-11] MEDS ORDERED: Glucagon 1 MG/ML KIT IM PRN (18:29)
[2023-10-11] MEDS ORDERED: Dextrose 50% Abboject 50 ML SYRINGE SLOW IVP PRN (18:29)
[2023-10-11] MEDS ORDERED: HumaLOG 300 UNITS/3 ML VIAL SC PRN ×2 (18:29)
[2023-10-11] MEDS ORDERED: Dextrose 5% in Water 1,000 ML IV PRN (18:29)
[2023-10-11] MEDS: Gabapentin 100 MG CAP PO SCH (20:38)
[2023-10-11] MEDS: Sertraline 100 MG TAB PO SCH (20:38)
[2023-10-11] MEDS: Heparin 5,000 UNITS/ML VIAL SC SCH (20:38)
[2023-10-12 04:43] LABS: #Eosinphils 0.3 thou/uL (0.0-0.7); #Monocytes 0.4 thou/uL (0.11-0.59); #Neutrophils 2.8 thou/uL (1.40-6.50); %Basophils 0.7 % (0.0-1.0); %Eosinophils 6.7 % (0.0-10.0); %Lymphocytes 16.6 % (21.0-51.0); %Monocytes 10.2 % (0.0-10.0); %Neutrophils 65.6 % (42.0-75.0); Hemoglobin 11.2 g/dL (12.0-16.0); Mean Corpuscular Hemoglobin 31.3 pg (27.0-31.0); Mean Corpuscular Volume 97.8 fl (78.0-98.0); Mean Platelet Volume 9.9 fL (7.4-10.4); Platelet Count 173 10x3/uL (130-400); RBC Distribution Width 14.6 % (11.5-14.5); Red Blood Cell (RBC) Count 3.58 mill/uL (4.20-5.40); White Blood Cell (WBC) Count 4.2 10x3/uL (4.8-10.8)
[2023-10-12 05:11] LABS: Phosphorus 3.3 mg/dL (2.3-4.7)
[2023-10-12 05:18] LABS: Anion Gap 14 mmol/L (10-20); BUN (Urea Nitrogen) 25 mg/dL (9.8-20.1); Calc. Creatinine Clearance 9 mL/min (70-130); Calcium 8.8 mg/dL (7.8-10.44); Carbon Dioxide 25 mmol/L (23-31); Chloride 104 mmol/L (98-107); Estimated GFR 5; Glucose 78 mg/dL (83-110); Potassium 3.1 mmol/L (3.5-5.1); Sodium 140 mmol/L (136-145)
[2023-10-12] MEDS: Aspirin Chewable 81 MG TAB PO SCH (08:43)
[2023-10-12] MEDS: Heparin 5,000 UNITS/ML VIAL SC SCH ×3 (08:43→20:02)
[2023-10-12] MEDS ORDERED: FLU VACC QS2023(65UP)/MF59C/PF 60 MCG/0.5 ML SYRINGE IM ONE (09:00)
[2023-10-12] MEDS: Amlodipine 5 MG TAB PO SCH (09:48)
[2023-10-12] MEDS ORDERED: Docusate 100 MG CAP PO PRN (12:36)
[2023-10-12] MEDS ORDERED: Polyethylene Glycol 3350 17 GM Packet PO PRN (12:36)
[2023-10-12] MEDS ORDERED: Lidocaine-Prilocaine 2.5% Cream 5 GM TUBE TOP PRN (14:05)
[2023-10-12] MEDS: Methimazole 5 MG TAB PO SCH ×2 (14:42→20:03)
[2023-10-12] MEDS: Sucralfate 1 GM TAB PO SCH ×2 (17:02→20:02)
[2023-10-12] MEDS: Gabapentin 100 MG CAP PO SCH (20:02)
[2023-10-12] MEDS: Sertraline 100 MG TAB PO SCH (20:02)
[2023-10-13] MEDS: Aspirin Chewable 81 MG TAB PO SCH (08:27)
[2023-10-13] MEDS: Sucralfate 1 GM TAB PO SCH ×4 (08:27→21:30)
[2023-10-13] MEDS: Amlodipine 5 MG TAB PO SCH (08:27)
[2023-10-13] MEDS: Hydrocortisone 10 mg Tablet PO SCH (08:27)
[2023-10-13] MEDS: Methimazole 5 MG TAB PO SCH ×3 (08:58→21:30)
[2023-10-13] MEDS: Heparin 5,000 UNITS/ML VIAL SC SCH ×3 (09:01→21:29)
[2023-10-13] MEDS: Loratadine 10 MG TAB PO SCH ×2 (14:33→14:38)
[2023-10-13] MEDS: Gabapentin 100 MG CAP PO SCH (21:29)
[2023-10-13] MEDS: Sertraline 100 MG TAB PO SCH (21:30)
[2023-10-14] MEDS ORDERED: Loratadine 10 MG TAB PO SCH (09:00)
[2023-10-14] MEDS: Sucralfate 1 GM TAB PO SCH ×4 (09:04→21:55)
[2023-10-14] MEDS: Aspirin Chewable 81 MG TAB PO SCH (09:04)
[2023-10-14] MEDS: Hydrocortisone 10 mg Tablet PO SCH (09:04)
[2023-10-14] MEDS: Amlodipine 5 MG TAB PO SCH (09:04)
[2023-10-14] MEDS: Methimazole 5 MG TAB PO SCH ×3 (09:04→21:56)
[2023-10-14] MEDS: Heparin 5,000 UNITS/ML VIAL SC SCH ×3 (09:08→21:55)
[2023-10-14] MEDS: Acetaminophen 325 MG TAB PO PRN (16:39)
[2023-10-14 20:22] LABS: Hematocrit 36.5 % (36.0-47.0); Hemoglobin 11.8 g/dL (12.0-16.0); Mean Corpuscular HGB CONC 32.3 g/dL (32.0-36.0); Mean Corpuscular Hemoglobin 30.5 pg (27.0-31.0); Mean Corpuscular Volume 94.3 fl (78.0-98.0); Mean Platelet Volume 9.3 fL (7.4-10.4); Platelet Count 143 10x3/uL (130-400); RBC Distribution Width 14.8 % (11.5-14.5); Red Blood Cell (RBC) Count 3.87 mill/uL (4.20-5.40); White Blood Cell (WBC) Count 4.6 10x3/uL (4.8-10.8)
[2023-10-14 20:47] LABS: Chloride 102 mmol/L (98-107); Potassium 3.3 mmol/L (3.5-5.1); Sodium 136 mmol/L (136-145)
[2023-10-14 20:48] LABS: Calcium 8.8 mg/dL (7.8-10.44); Glucose 120 mg/dL (83-110)
[2023-10-14 20:50] LABS: Anion Gap 12 mmol/L (10-20); Carbon Dioxide 25 mmol/L (23-31)
[2023-10-14 20:52] LABS: Calc. Creatinine Clearance 17 mL/min (70-130); Estimated GFR 12
[2023-10-14 20:53] LABS: BUN (Urea Nitrogen) 12 mg/dL (9.8-20.1)
[2023-10-14] MEDS: Gabapentin 100 MG CAP PO SCH (21:56)
[2023-10-14] MEDS: Sertraline 100 MG TAB PO SCH (21:57)
[2023-10-15] MEDS: Hydrocortisone 10 mg Tablet PO SCH (07:43)
[2023-10-15] MEDS: Methimazole 5 MG TAB PO SCH ×3 (07:43→20:47)
[2023-10-15] MEDS: Aspirin Chewable 81 MG TAB PO SCH (07:44)
[2023-10-15] MEDS: Amlodipine 10 MG TAB PO SCH (07:44)
[2023-10-15] MEDS: Sucralfate 1 GM TAB PO SCH ×4 (07:44→20:48)
[2023-10-15] MEDS: Heparin 5,000 UNITS/ML VIAL SC SCH ×3 (07:47→20:52)
[2023-10-15] MEDS ORDERED: Phenol 177 ML BOT PO PRN (12:51)
[2023-10-15] MEDS: Gabapentin 100 MG CAP PO SCH (20:47)
[2023-10-15] MEDS: Sertraline 100 MG TAB PO SCH (20:47)
[2023-10-16] MEDS: Acetaminophen 325 MG TAB PO PRN (00:59)
[2023-10-16] MEDS: Sucralfate 1 GM TAB PO SCH ×4 (08:11→19:55)
[2023-10-16] MEDS: Hydrocortisone 10 mg Tablet PO SCH (08:11)
[2023-10-16] MEDS: Amlodipine 10 MG TAB PO SCH (08:11)
[2023-10-16] MEDS: Loratadine 10 MG TAB PO SCH (08:11)
[2023-10-16] MEDS: Methimazole 5 MG TAB PO SCH ×3 (08:11→19:54)
[2023-10-16] MEDS: Aspirin Chewable 81 MG TAB PO SCH (08:12)
[2023-10-16] MEDS: Heparin 5,000 UNITS/ML VIAL SC SCH ×3 (08:13→19:55)
[2023-10-16] MEDS ORDERED: traMADol HCl 50 MG TAB PO SCH (08:30)
[2023-10-16 12:16] LABS: Anion Gap 14 mmol/L (10-20); BUN (Urea Nitrogen) 47 mg/dL (9.8-20.1); Calc. Creatinine Clearance 9 mL/min (70-130); Calcium 8.9 mg/dL (7.8-10.44); Carbon Dioxide 24 mmol/L (23-31); Chloride 102 mmol/L (98-107); Estimated GFR 6; Glucose 107 mg/dL (83-110); Magnesium 2.1 mg/dL (1.6-2.6); Potassium 3.6 mmol/L (3.5-5.1); Sodium 136 mmol/L (136-145)
[2023-10-16] MEDS: HYDROcodone/Acetaminophen 5/325 mg Tablet PO PRN (12:16)
[2023-10-16 12:28] LABS: Free T4 (Free Thyroxine) 0.73 ng/dL (0.70-1.48); Thyroid Stimulating Hormone 5.7987 uIU/mL (0.35-4.94)
[2023-10-16] MEDS: Gabapentin 100 MG CAP PO SCH (19:54)
[2023-10-16] MEDS: Sertraline 100 MG TAB PO SCH (19:54)
[2023-10-17] MEDS: Hydrocortisone 10 mg Tablet PO SCH (08:32)
[2023-10-17] MEDS: Amlodipine 10 MG TAB PO SCH (08:33)
[2023-10-17] MEDS: Sucralfate 1 GM TAB PO SCH ×4 (08:34→22:03)
[2023-10-17] MEDS: Aspirin Chewable 81 MG TAB PO SCH (08:36)
[2023-10-17] MEDS: Heparin 5,000 UNITS/ML VIAL SC SCH ×3 (08:37→22:03)
[2023-10-17] MEDS: Methimazole 5 MG TAB PO SCH ×2 (12:06→15:17)
[2023-10-17] MEDS: HYDROcodone/Acetaminophen 5/325 mg Tablet PO PRN (12:30)
[2023-10-17] MEDS ORDERED: Heparin 10,000 UNITS/ 10 ML VIAL ONE (13:32)
[2023-10-17] MEDS: Gabapentin 100 MG CAP PO SCH (22:01)
[2023-10-17] MEDS: Sertraline 100 MG TAB PO SCH (22:02)
[2023-10-18] MEDS: HYDROcodone/Acetaminophen 5/325 mg Tablet PO PRN ×2 (06:41→15:33)
[2023-10-18 08:24] VITALS: BMI 23.8
[2023-10-18] MEDS ORDERED: Lidocaine 2% 6 ML (Jelly) SYR TOP PRN (10:31)
[2023-10-18] MEDS ORDERED: Heparin 10,000 UNITS/ 10 ML VIAL ONE (11:20)
[2023-10-18 14:28] LABS: Albumin 3.4 g/dL (3.4-4.8); Anion Gap 11 mmol/L (10-20); BUN (Urea Nitrogen) 10 mg/dL (9.8-20.1); BUN/Creatinine Ratio 4.69; Calc. Creatinine Clearance 30 mL/min (70-130); Calcium 8.4 mg/dL (7.8-10.44); Carbon Dioxide 27 mmol/L (23-31); Estimated GFR 24; Glucose 79 mg/dL (83-110); Potassium 2.7 mmol/L (3.5-5.1); Sodium 135 mmol/L (136-145)
[2023-10-18 14:41] LABS: Chloride 100 mmol/L (98-107); Critical Call Chemistry NUR.SM29@1441; Phosphorus 1.5 mg/dL (2.3-4.7)
[2023-10-18] MEDS: Sucralfate 1 GM TAB PO SCH ×3 (14:42→23:08)
[2023-10-18] MEDS: Heparin 5,000 UNITS/ML VIAL SC SCH (14:42)
[2023-10-18] MEDS: Loratadine 10 MG TAB PO SCH (15:25)
[2023-10-18] MEDS: Amlodipine 10 MG TAB PO SCH (15:25)
[2023-10-18] MEDS: Hydrocortisone 10 mg Tablet PO SCH (15:25)
[2023-10-18] MEDS: Aspirin Chewable 81 MG TAB PO SCH (15:25)
[2023-10-18] MEDS: Methimazole 5 MG TAB PO SCH (15:27)
[2023-10-18] MEDS ORDERED: Magnesium Oxide 400 MG TAB PO SCH (16:38)
[2023-10-18] MEDS ORDERED: Potassium Chloride 20 MEQ TAB PO SCH (16:45)
[2023-10-18] MEDS: Potassium Chloride 20 MEQ TAB PO SCH (17:44)
[2023-10-19] MEDS: Gabapentin 100 MG CAP PO SCH ×2 (00:08→20:48)
[2023-10-19] MEDS: PHOS-NAK 1 PKT PACK PO SCH ×3 (00:08→09:08)
[2023-10-19] MEDS: Heparin 5,000 UNITS/ML VIAL SC SCH ×4 (00:09→20:52)
[2023-10-19] MEDS: Sertraline 100 MG TAB PO SCH ×2 (00:09→20:48)
[2023-10-19] MEDS: Aspirin Chewable 81 MG TAB PO SCH (09:02)
[2023-10-19] MEDS: Magnesium Oxide 400 MG TAB PO SCH (09:02)
[2023-10-19] MEDS: Amlodipine 10 MG TAB PO SCH (09:02)
[2023-10-19] MEDS: Potassium Chloride 20 MEQ TAB PO SCH (09:02)
[2023-10-19] MEDS: Sucralfate 1 GM TAB PO SCH ×4 (09:02→20:49)
[2023-10-19] MEDS: Hydrocortisone 10 mg Tablet PO SCH (09:02)
[2023-10-19] MEDS: Methimazole 5 MG TAB PO SCH (09:03)
[2023-10-19] MEDS: HYDROcodone/Acetaminophen 5/325 mg Tablet PO PRN ×2 (09:10→21:50)
[2023-10-20] MEDS: Sucralfate 1 GM TAB PO SCH ×5 (09:02→20:55)
[2023-10-20] MEDS: Amlodipine 10 MG TAB PO SCH (09:02)
[2023-10-20] MEDS: Aspirin Chewable 81 MG TAB PO SCH ×2 (09:03→11:12)
[2023-10-20] MEDS: Heparin 5,000 UNITS/ML VIAL SC SCH ×3 (09:03→20:56)
[2023-10-20] MEDS: Hydrocortisone 10 mg Tablet PO SCH ×2 (09:03→11:13)
[2023-10-20] MEDS: Magnesium Oxide 400 MG TAB PO SCH (09:03)
[2023-10-20] MEDS: Loratadine 10 MG TAB PO SCH ×2 (09:03→11:13)
[2023-10-20] MEDS: Methimazole 5 MG TAB PO SCH (09:04)
[2023-10-20] MEDS: Sertraline 100 MG TAB PO SCH (20:54)
[2023-10-20] MEDS: Gabapentin 100 MG CAP PO SCH (20:55)
[2023-10-21] MEDS: Magnesium Oxide 400 MG TAB PO SCH (11:10)
[2023-10-21] MEDS: Sucralfate 1 GM TAB PO SCH ×3 (11:10→21:09)
[2023-10-21] MEDS: Aspirin Chewable 81 MG TAB PO SCH (11:10)
[2023-10-21] MEDS: Heparin 5,000 UNITS/ML VIAL SC SCH ×3 (11:11→21:12)
[2023-10-21 16:47] LABS: #Eosinphils 0.2 thou/uL (0.0-0.7); #Monocytes 0.3 thou/uL (0.11-0.59); #Neutrophils 2.6 thou/uL (1.40-6.50); %Basophils 0.8 % (0.0-1.0); %Eosinophils 5.4 % (0.0-10.0); %Lymphocytes 17.9 % (21.0-51.0); %Monocytes 8.2 % (0.0-10.0); %Neutrophils 67.7 % (42.0-75.0); Hematocrit 30.8 % (36.0-47.0); Mean Corpuscular HGB CONC 32.5 g/dL (32.0-36.0); Mean Corpuscular Hemoglobin 31.2 pg (27.0-31.0); Mean Platelet Volume 9.6 fL (7.4-10.4); Platelet Count 162 10x3/uL (130-400); RBC Distribution Width 14.5 % (11.5-14.5); Red Blood Cell (RBC) Count 3.21 mill/uL (4.20-5.40); White Blood Cell (WBC) Count 3.9 10x3/uL (4.8-10.8)
[2023-10-21] MEDS: Acetaminophen 325 MG TAB PO PRN (17:10)
[2023-10-21 17:17] LABS: Anion Gap 11 mmol/L (10-20); BUN (Urea Nitrogen) 55 mg/dL (9.8-20.1); Calc. Creatinine Clearance 4 mL/min (70-130); Calcium 8.6 mg/dL (7.8-10.44); Carbon Dioxide 25 mmol/L (23-31); Chloride 105 mmol/L (98-107); Estimated GFR 6; Glucose 116 mg/dL (83-110); Potassium 3.7 mmol/L (3.5-5.1); Sodium 137 mmol/L (136-145)
[2023-10-21] MEDS: Methimazole 5 MG TAB PO SCH (19:44)
[2023-10-21] MEDS: Hydrocortisone 10 mg Tablet PO SCH (19:44)
[2023-10-21] MEDS: Amlodipine 10 MG TAB PO SCH (19:44)
[2023-10-21] MEDS: Gabapentin 100 MG CAP PO SCH (21:09)
[2023-10-21] MEDS: Sertraline 100 MG TAB PO SCH (21:10)
[2023-10-22] MEDS: Aspirin Chewable 81 MG TAB PO SCH (08:02)
[2023-10-22] MEDS: Sucralfate 1 GM TAB PO SCH ×2 (08:02→12:35)
[2023-10-22] MEDS: Amlodipine 10 MG TAB PO SCH (08:02)
[2023-10-22] MEDS: Loratadine 10 MG TAB PO SCH (08:02)
[2023-10-22] MEDS: Hydrocortisone 10 mg Tablet PO SCH (08:02)
[2023-10-22] MEDS: Methimazole 5 MG TAB PO SCH (08:03)
[2023-10-22] MEDS: Magnesium Oxide 400 MG TAB PO SCH (08:03)
[2023-10-22] MEDS: Heparin 5,000 UNITS/ML VIAL SC SCH ×2 (08:03→14:12)
[2023-10-22 08:59] VITALS: BP 131/77; TEMP 98
== END 2023-10-22 17:15 | DRG 304 ==
LOC: ERS 10:53 → 2NO 17:17 → MSONC 10-18 20:38
PROVIDERS: ADMIT Internal Medicine; ATTEND Family Medicine
PROC: 5A1D70Z Performance of Urinary Filtration, Intermittent, Less than 6 Hours Per Day (ICD-10-PCS; principal; 2023-10-12)
PROC: 5A1D70Z Performance of Urinary Filtration, Intermittent, Less than 6 Hours Per Day (ICD-10-PCS; 2023-10-14)
PROC: 5A1D70Z Performance of Urinary Filtration, Intermittent, Less than 6 Hours Per Day (ICD-10-PCS; 2023-10-17)
PROC: 5A1D70Z Performance of Urinary Filtration, Intermittent, Less than 6 Hours Per Day (ICD-10-PCS; 2023-10-18)
DX: I16.0 Hypertensive urgency (principal); N18.6 End stage renal disease; I13.2 Hypertensive heart and chronic kidney disease with heart failure and with stage 5 chronic kidney disease, or end stage renal disease; I25.10 Atherosclerotic heart disease of native coronary artery without angina pectoris; F03.90 Unspecified dementia, unspecified severity, without behavioral disturbance, psychotic disturbance, mood disturbance, and anxiety; I50.9 Heart failure, unspecified; E11.22 Type 2 diabetes mellitus with diabetic chronic kidney disease; E03.9 Hypothyroidism, unspecified; R53.81 Other malaise; R53.1 Weakness; D63.1 Anemia in chronic kidney disease; I44.1 Atrioventricular block, second degree; E83.39 Other disorders of phosphorus metabolism; E87.6 Hypokalemia; Z90.5 Acquired absence of kidney; Z85.038 Personal history of other malignant neoplasm of large intestine; Z88.6 Allergy status to analgesic agent; Z99.2 Dependence on renal dialysis; Z86.73 Personal history of transient ischemic attack (TIA), and cerebral infarction without residual deficits; Z91.81 History of falling; Z79.899 Other long term (current) drug therapy; Z79.82 Long term (current) use of aspirin; Z98.890 Other specified postprocedural states
CPT/HCPCS: 36415; 36416; 70450; 71045; 72125; 72128; 72131; 72170; 74176; 80048; 80053; 80069; 81001; 83605; 83690; 83735; 83880; 84100; 84439; 84443; 84481; 84484; 85025; 85027; 90935; 93005; 94760; 96374; G0257; J0360; J1644

== ENCOUNTER 2024-03-09 15:32 | Emergency (ER) | payer MEDICARE, BC ==
[2024-03-09] MEDS ORDERED: cefTRIAXone (ROCEPHIN) 1 GM VIAL ONE (15:57)
[2024-03-09 16:13] LABS: #Basophils 0.05 10x3/uL (0.0-0.2); %Basophils 0.9 % (0.0-1.0); %Eosinophils 2.1 % (0.0-10.0); %Lymphocytes 16.3 % (21.0-51.0); %Monocytes 6.9 % (0.0-10.0); %Neutrophils 73.5 % (42.0-75.0); Hematocrit 33.7 % (36.0-47.0); Hemoglobin 11.2 g/dL (12.0-16.0); Mean Corpuscular HGB CONC 33.2 g/dL (32.0-36.0); Mean Corpuscular Hemoglobin 32.9 pg (27.0-31.0); Mean Corpuscular Volume 99.1 fL (78.0-98.0); Mean Platelet Volume 10.4 fL (7.4-10.4); Platelet Count 174 10x3/uL (130-400); RBC Distribution Width 13.2 % (11.5-14.5)
[2024-03-09 16:32] LABS: ALT (SGPT) 7 U/L (8-55); AST (SGOT) 13 U/L (5-34); Albumin 3.1 g/dL (3.4-4.8); Alkaline Phosphatase 138 U/L (40-110); Anion Gap 21 mmol/L (10-20); BUN (Urea Nitrogen) 90 mg/dL (9.8-20.1); Bilirubin, Total 0.4 mg/dL (0.2-1.2); Calc. Creatinine Clearance 0 mL/min (70-130); Calcium 8.3 mg/dL (7.8-10.44); Carbon Dioxide 20 mmol/L (23-31); Chloride 98 mmol/L (98-107); Estimated GFR 4; Globulin 3.3 g/dL (2.4-3.5); Glucose 83 mg/dL (83-110); Magnesium 1.9 mg/dL (1.6-2.6); Potassium 4.4 mmol/L (3.5-5.1); Protein, Total 6.4 g/dL (5.8-8.1); Sodium 135 mmol/L (136-145)
[2024-03-09 16:37] LABS: Troponin I Less than 0.010 ng/mL (< 0.028)
[2024-03-09 19:40] LABS: Bacteria/HPF 1+ HPF (None Seen); Bilirubin Negative (Negative); Blood, Urine Negative (Negative); CAUTI Indications for Culture Alt mental st,lethar; Clarity Clear (Clear); Glucose, Urine (Dipstick) Normal (Negative); Ketone, Urine Negative (Negative); Leukocyte 250 Leu/uL (Negative); Nitrite Negative (Negative); Protein, Urine (Dipstick) 30 mg/dL (Neg-Trace); RBC/HPF 0-3 HPF (0-3); Specific Gravity, Urine 1.011 (1.002-1.036); Squamous Epithelial 0-3 HPF (0-3); Urobilinogen Normal mg/dL (Less than 2); WBC/HPF 0-3 HPF (0-3); pH, Urine 5.5 (5.0-9.0)
[2024-03-09 19:41] LABS: Urine Culture Reflex No No
== END 2024-03-09 21:37 | disposition home or self-care (01) ==
LOC: ERS 15:32
DX: R53.1 Weakness (principal); R79.89 Other specified abnormal findings of blood chemistry; I25.10 Atherosclerotic heart disease of native coronary artery without angina pectoris; E11.22 Type 2 diabetes mellitus with diabetic chronic kidney disease; I13.2 Hypertensive heart and chronic kidney disease with heart failure and with stage 5 chronic kidney disease, or end stage renal disease; N18.6 End stage renal disease; Z99.2 Dependence on renal dialysis
CPT/HCPCS: 71045; 80053; 81001; 83605; 83735; 83880; 84484; 85025; 87040; 93005; J0696; 36416; 96374

== ENCOUNTER 2024-03-11 08:58 | Inpatient (IN) | payer MEDICARE, BC ==
[2024-03-11 09:36] LABS: #Basophils 0.03 10x3/uL (0.0-0.2); %Basophils 0.6 % (0.0-1.0); %Eosinophils 3.2 % (0.0-10.0); %Lymphocytes 14.4 % (21.0-51.0); %Monocytes 7.3 % (0.0-10.0); %Neutrophils 74.3 % (42.0-75.0); Hematocrit 34.5 % (36.0-47.0); Hemoglobin 11.5 g/dL (12.0-16.0); Mean Corpuscular HGB CONC 33.3 g/dL (32.0-36.0); Mean Corpuscular Hemoglobin 31.9 pg (27.0-31.0); Mean Corpuscular Volume 95.6 fL (78.0-98.0); Mean Platelet Volume 9.7 fL (7.4-10.4); Platelet Count 158 10x3/uL (130-400); Red Blood Cell (RBC) Count 3.61 mill/uL (4.20-5.40)
[2024-03-11] MEDS ORDERED: Ondansetron PF 4 MG/2 ML Vial ONE (09:53)
[2024-03-11 09:54] LABS: ALT (SGPT) Less than 5 U/L (8-55); AST (SGOT) 10 U/L (5-34); Albumin 3.4 g/dL (3.4-4.8); Alkaline Phosphatase 131 U/L (40-110); Anion Gap 24 mmol/L (10-20); BUN (Urea Nitrogen) 114 mg/dL (9.8-20.1); Bilirubin, Total 0.4 mg/dL (0.2-1.2); Calc. Creatinine Clearance 0 mL/min (70-130); Calcium 8.1 mg/dL (7.8-10.44); Carbon Dioxide 18 mmol/L (23-31); Chloride 101 mmol/L (98-107); Estimated GFR 4; Globulin 3.1 g/dL (2.4-3.5); Glucose 68 mg/dL (83-110); Potassium 3.7 mmol/L (3.5-5.1); Protein, Total 6.5 g/dL (5.8-8.1); Sodium 139 mmol/L (136-145)
[2024-03-11] MEDS ORDERED: Furosemide 40 MG (4 mL) VIAL ONE (11:25)
[2024-03-11] MEDS ORDERED: Ondansetron ODT 4 MG TAB PO PRN (12:15)
[2024-03-11] MEDS ORDERED: Acetaminophen 325 MG TAB PO PRN (12:15)
[2024-03-11] MEDS ORDERED: Ondansetron PF 4 MG/2 ML Vial IVP PRN (12:15)
[2024-03-11 12:48] VITALS: BMI 26.0
[2024-03-11] MEDS: Sodium Bicarb 50 MEQ/50 ML Abboject 8.4% SYRINGE IVP SCH (14:57)
[2024-03-11] MEDS: Lactated Ringer's 500 ML IV SCH (14:57)
[2024-03-11] MEDS: Pantoprazole 40 MG VIAL IVP SCH ×2 (14:57→20:41)
[2024-03-11 16:36] LABS: Bacteria/HPF Rare-Few HPF (None Seen); Bilirubin Negative (Negative); Blood, Urine Negative (Negative); Clarity Clear (Clear); Glucose, Urine (Dipstick) Normal (Negative); Ketone, Urine Trace mg/dL (Negative); Leukocyte Negative Leu/uL (Negative); Nitrite Negative (Negative); Protein, Urine (Dipstick) 30 mg/dL (Neg-Trace); RBC/HPF 0-3 HPF (0-3); Squamous Epithelial 0-3 HPF (0-3); Urobilinogen Normal mg/dL (Less than 2); WBC/HPF 0-3 HPF (0-3); pH, Urine 5.5 (5.0-9.0)
[2024-03-11] MEDS: Sucralfate 1 GM TAB PO SCH (18:13)
[2024-03-11] MEDS: Sertraline 100 MG TAB PO SCH (20:41)
[2024-03-11] MEDS: Sodium Bicarbonate Tab 325 MG TAB PO SCH (20:42)
[2024-03-11] MEDS: Gabapentin 100 MG CAP PO SCH (20:42)
[2024-03-11] MEDS: Heparin 5,000 UNITS/ML VIAL SC SCH (20:43)
[2024-03-12] MEDS: diphenhydrAMINE 25 MG CAP PO SCH (02:05)
[2024-03-12 09:03] LABS: #Basophils 0.03 10x3/uL (0.0-0.2); %Basophils 0.7 % (0.0-1.0); %Eosinophils 3.1 % (0.0-10.0); %Lymphocytes 15.5 % (21.0-51.0); %Monocytes 9.4 % (0.0-10.0); %Neutrophils 70.8 % (42.0-75.0); Hematocrit 32.1 % (36.0-47.0); Hemoglobin 10.6 g/dL (12.0-16.0); Mean Corpuscular Hemoglobin 32.1 pg (27.0-31.0); Mean Corpuscular Volume 97.3 fL (78.0-98.0); Platelet Count 158 10x3/uL (130-400); RBC Distribution Width 12.9 % (11.5-14.5)
[2024-03-12] MEDS: Aspirin Chewable 81 MG TAB PO SCH (09:27)
[2024-03-12] MEDS: Methimazole 5 MG TAB PO SCH (09:27)
[2024-03-12 10:00] LABS: Anion Gap 19 mmol/L (10-20); BUN (Urea Nitrogen) 54 mg/dL (9.8-20.1); Calc. Creatinine Clearance 9 mL/min (70-130); Calcium 8.7 mg/dL (7.8-10.44); Carbon Dioxide 23 mmol/L (23-31); Chloride 103 mmol/L (98-107); Estimated GFR 6; Glucose 84 mg/dL (83-110); Potassium 3.8 mmol/L (3.5-5.1); Sodium 141 mmol/L (136-145)
[2024-03-12 13:13] LABS: Anion Gap 14 mmol/L (10-20); BUN (Urea Nitrogen) 61 mg/dL (9.8-20.1); Calc. Creatinine Clearance 9 mL/min (70-130); Calcium 8.5 mg/dL (7.8-10.44); Carbon Dioxide 27 mmol/L (23-31); Chloride 102 mmol/L (98-107); Estimated GFR 5; Glucose 113 mg/dL (83-110); Potassium 4.1 mmol/L (3.5-5.1); Sodium 139 mmol/L (136-145)
[2024-03-12] MEDS: Hydrocortisone 10 mg Tablet PO SCH (15:38)
[2024-03-12] MEDS: Levothyroxine Sodium 100 MCG TAB PO SCH (15:39)
[2024-03-12] MEDS: Cinacalcet HCl 30 MG TAB PO SCH (16:33)
[2024-03-12] MEDS: Docusate 100 MG CAP PO SCH (21:21)
[2024-03-13] MEDS ORDERED: Ondansetron ODT 4 MG TAB PO PRN (01:21)
[2024-03-13 05:47] LABS: #Basophils 0.04 10x3/uL (0.0-0.2); %Basophils 0.8 % (0.0-1.0); %Eosinophils 3.3 % (0.0-10.0); %Lymphocytes 14.1 % (21.0-51.0); %Monocytes 8.1 % (0.0-10.0); %Neutrophils 73.5 % (42.0-75.0); Hematocrit 32.9 % (36.0-47.0); Hemoglobin 10.8 g/dL (12.0-16.0); Mean Corpuscular HGB CONC 32.8 g/dL (32.0-36.0); Mean Corpuscular Hemoglobin 31.8 pg (27.0-31.0); Mean Corpuscular Volume 96.8 fL (78.0-98.0); Mean Platelet Volume 10.2 fL (7.4-10.4); Platelet Count 155 10x3/uL (130-400); RBC Distribution Width 12.9 % (11.5-14.5)
[2024-03-13 06:13] LABS: Anion Gap 16 mmol/L (10-20); BUN (Urea Nitrogen) 74 mg/dL (9.8-20.1); Calc. Creatinine Clearance 8 mL/min (70-130); Calcium 7.9 mg/dL (7.8-10.44); Carbon Dioxide 24 mmol/L (23-31); Chloride 104 mmol/L (98-107); Estimated GFR 5; Glucose 100 mg/dL (83-110); Potassium 4.6 mmol/L (3.5-5.1); Sodium 139 mmol/L (136-145)
[2024-03-13] MEDS: Levothyroxine Sodium 100 MCG TAB PO SCH (09:12)
[2024-03-13] MEDS: Cinacalcet HCl 30 MG TAB PO SCH (09:12)
[2024-03-13] MEDS: Hydrocortisone 10 mg Tablet PO SCH (09:12)
[2024-03-13 15:33] LABS: Free T4 (Free Thyroxine) 0.7 ng/dL (0.70-1.48); Thyroid Stimulating Hormone 1.1122 uIU/mL (0.35-4.94)
[2024-03-14 06:16] LABS: #Basophils 0.03 10x3/uL (0.0-0.2); %Basophils 0.6 % (0.0-1.0); %Eosinophils 5.2 % (0.0-10.0); %Lymphocytes 20.6 % (21.0-51.0); %Monocytes 11.3 % (0.0-10.0); %Neutrophils 61.7 % (42.0-75.0); Hematocrit 31.8 % (36.0-47.0); Hemoglobin 10.2 g/dL (12.0-16.0); Mean Corpuscular HGB CONC 32.1 g/dL (32.0-36.0); Mean Corpuscular Hemoglobin 32.4 pg (27.0-31.0); Platelet Count 138 10x3/uL (130-400); Red Blood Cell (RBC) Count 3.15 mill/uL (4.20-5.40)
[2024-03-14 06:27] LABS: ALT (SGPT) 5 U/L (8-55); AST (SGOT) 9 U/L (5-34); Albumin 2.8 g/dL (3.4-4.8); Alkaline Phosphatase 150 U/L (40-110); Anion Gap 14 mmol/L (10-20); BUN (Urea Nitrogen) 38 mg/dL (9.8-20.1); Bilirubin, Total 0.2 mg/dL (0.2-1.2); Calc. Creatinine Clearance 12 mL/min (70-130); Calcium 7.1 mg/dL (7.8-10.44); Carbon Dioxide 26 mmol/L (23-31); Chloride 104 mmol/L (98-107); Estimated GFR 7; Globulin 2.8 g/dL (2.4-3.5); Glucose 104 mg/dL (83-110); Magnesium 1.8 mg/dL (1.6-2.6); Potassium 3.9 mmol/L (3.5-5.1); Protein, Total 5.6 g/dL (5.8-8.1); Sodium 140 mmol/L (136-145)
[2024-03-14] MEDS: Hydrocortisone Sod Succ/PF 100 mg/2 ml Vial IVP SCH ×2 (16:53→19:19)
[2024-03-14] MEDS: Sodium Chloride 0.9% 250 ML IV SCH ×2 (19:48→21:53)
[2024-03-14] MEDS ORDERED: Hydrocortisone 10 mg Tablet PO SCH (21:00)
[2024-03-15 06:38] LABS: #Basophils 0.03 10x3/uL (0.0-0.2); %Basophils 0.6 % (0.0-1.0); %Eosinophils 1.2 % (0.0-10.0); %Neutrophils 79.4 % (42.0-75.0); Hemoglobin 10.4 g/dL (12.0-16.0); Mean Corpuscular HGB CONC 31.5 g/dL (32.0-36.0); Mean Corpuscular Hemoglobin 32.3 pg (27.0-31.0); Mean Corpuscular Volume 102.5 fL (78.0-98.0); Mean Platelet Volume 10.6 fL (7.4-10.4); Platelet Count 141 10x3/uL (130-400); RBC Distribution Width 13.2 % (11.5-14.5); Red Blood Cell (RBC) Count 3.22 mill/uL (4.20-5.40)
[2024-03-16] MEDS: Hydrocortisone 10 mg Tablet PO SCH (20:35)
[2024-03-17 05:50] LABS: #Basophils 0.03 10x3/uL (0.0-0.2); %Basophils 0.4 % (0.0-1.0); %Eosinophils 0.7 % (0.0-10.0); %Lymphocytes 8.6 % (21.0-51.0); %Monocytes 6.5 % (0.0-10.0); %Neutrophils 83.1 % (42.0-75.0); Hematocrit 28.6 % (36.0-47.0); Hemoglobin 9.1 g/dL (12.0-16.0); Mean Corpuscular HGB CONC 31.8 g/dL (32.0-36.0); Mean Corpuscular Hemoglobin 32.3 pg (27.0-31.0); Mean Corpuscular Volume 101.4 fL (78.0-98.0); Mean Platelet Volume 10.3 fL (7.4-10.4); Platelet Count 140 10x3/uL (130-400); RBC Distribution Width 13.3 % (11.5-14.5); Red Blood Cell (RBC) Count 2.82 mill/uL (4.20-5.40)
[2024-03-17 06:49] LABS: Anion Gap 16 mmol/L (10-20); BUN (Urea Nitrogen) 46 mg/dL (9.8-20.1); Calc. Creatinine Clearance 12 mL/min (70-130); Carbon Dioxide 24 mmol/L (23-31); Chloride 102 mmol/L (98-107); Estimated GFR 8; Glucose 190 mg/dL (83-110); Potassium 3.8 mmol/L (3.5-5.1); Sodium 138 mmol/L (136-145)
[2024-03-17 12:09] VITALS: BMI 26.0
[2024-03-17] MEDS: Midodrine HCl 5 MG TAB PO SCH (20:51)
[2024-03-18 06:08] LABS: #Basophils 0.04 10x3/uL (0.0-0.2); %Basophils 0.5 % (0.0-1.0); %Eosinophils 0.9 % (0.0-10.0); %Lymphocytes 9.8 % (21.0-51.0); %Monocytes 8.7 % (0.0-10.0); %Neutrophils 79.2 % (42.0-75.0); Hemoglobin 9.3 g/dL (12.0-16.0); Mean Corpuscular HGB CONC 32.1 g/dL (32.0-36.0); Mean Corpuscular Volume 99.7 fL (78.0-98.0); Mean Platelet Volume 10.5 fL (7.4-10.4); Platelet Count 156 10x3/uL (130-400); RBC Distribution Width 13.5 % (11.5-14.5); Red Blood Cell (RBC) Count 2.91 mill/uL (4.20-5.40)
[2024-03-18 06:36] LABS: Anion Gap 16 mmol/L (10-20); BUN (Urea Nitrogen) 70 mg/dL (9.8-20.1); Calc. Creatinine Clearance 10 mL/min (70-130); Calcium 6.9 mg/dL (7.8-10.44); Carbon Dioxide 22 mmol/L (23-31); Chloride 104 mmol/L (98-107); Estimated GFR 6; Glucose 135 mg/dL (83-110); Potassium 4.1 mmol/L (3.5-5.1); Sodium 138 mmol/L (136-145)
[2024-03-18] MEDS ORDERED: Calcium Chloride 1 GM/10 ML Abboject SYRINGE IVP SCH (08:00)
[2024-03-18] MEDS ORDERED: Heparin 10,000 UNITS/ 10 ML VIAL ONE (08:52)
[2024-03-18] MEDS: Calcium Chloride 13.6 MEQ in Sodium Chloride 0.9% 100 ML IVPB SCH (10:39)
[2024-03-19 06:04] LABS: #Basophils 0.04 10x3/uL (0.0-0.2); %Basophils 0.5 % (0.0-1.0); %Eosinophils 0.5 % (0.0-10.0); %Lymphocytes 8.4 % (21.0-51.0); %Monocytes 6.5 % (0.0-10.0); %Neutrophils 82.7 % (42.0-75.0); Hematocrit 28.2 % (36.0-47.0); Mean Corpuscular HGB CONC 31.9 g/dL (32.0-36.0); Mean Corpuscular Hemoglobin 31.7 pg (27.0-31.0); Mean Corpuscular Volume 99.3 fL (78.0-98.0); Mean Platelet Volume 10.7 fL (7.4-10.4); Platelet Count 155 10x3/uL (130-400); RBC Distribution Width 13.2 % (11.5-14.5); Red Blood Cell (RBC) Count 2.84 mill/uL (4.20-5.40)
[2024-03-19 06:25] LABS: Anion Gap 11 mmol/L (10-20); BUN (Urea Nitrogen) 45 mg/dL (9.8-20.1); Calc. Creatinine Clearance 15 mL/min (70-130); Calcium 7.3 mg/dL (7.8-10.44); Carbon Dioxide 27 mmol/L (23-31); Chloride 102 mmol/L (98-107); Estimated GFR 10; Glucose 171 mg/dL (83-110); Potassium 4.2 mmol/L (3.5-5.1); Sodium 136 mmol/L (136-145)
[2024-03-19] MEDS: Pantoprazole DR 40 MG TAB PO SCH (08:22)
[2024-03-19] MEDS: Midodrine HCl 5 MG TAB PO SCH (08:23)
[2024-03-20 05:33] LABS: #Basophils 0.03 10x3/uL (0.0-0.2); #Eosinphils Less than 0.03 10x3/uL (0.0-0.7); %Basophils 0.3 % (0.0-1.0); %Eosinophils 0.2 % (0.0-10.0); %Monocytes 7.4 % (0.0-10.0); %Neutrophils 81.9 % (42.0-75.0); Hematocrit 28.9 % (36.0-47.0); Hemoglobin 9.4 g/dL (12.0-16.0); Mean Corpuscular HGB CONC 32.5 g/dL (32.0-36.0); Mean Corpuscular Hemoglobin 32.9 pg (27.0-31.0); Mean Platelet Volume 10.5 fL (7.4-10.4); Platelet Count 175 10x3/uL (130-400); RBC Distribution Width 13.4 % (11.5-14.5); Red Blood Cell (RBC) Count 2.86 mill/uL (4.20-5.40)
[2024-03-20 05:51] LABS: Anion Gap 15 mmol/L (10-20); BUN (Urea Nitrogen) 74 mg/dL (9.8-20.1); Calc. Creatinine Clearance 11 mL/min (70-130); Carbon Dioxide 23 mmol/L (23-31); Chloride 101 mmol/L (98-107); Estimated GFR 7; Glucose 184 mg/dL (83-110); Potassium 4.3 mmol/L (3.5-5.1); Sodium 135 mmol/L (136-145)
[2024-03-20] MEDS ORDERED: Heparin 10,000 UNITS/ 10 ML VIAL ONE (09:29)
[2024-03-21 23:32] VITALS: TEMP 98.1
[2024-03-22] MEDS: Levothyroxine Sodium 100 MCG TAB PO SCH (05:35)
[2024-03-22 07:57] VITALS: BP 146/85
== END 2024-03-22 08:05 | disposition home or self-care (01) | DRG 391 ==
LOC: ERS 08:58 → T4-A 12:11
PROVIDERS: ADMIT Hospitalist; ATTEND Hospitalist
DX: A08.4 Viral intestinal infection, unspecified (principal); N18.6 End stage renal disease; E27.40 Unspecified adrenocortical insufficiency; I13.2 Hypertensive heart and chronic kidney disease with heart failure and with stage 5 chronic kidney disease, or end stage renal disease; E87.20 Acidosis, unspecified; F03.94 Unspecified dementia, unspecified severity, with anxiety; F03.93 Unspecified dementia, unspecified severity, with mood disturbance; E11.22 Type 2 diabetes mellitus with diabetic chronic kidney disease; E78.1 Pure hyperglyceridemia; I25.10 Atherosclerotic heart disease of native coronary artery without angina pectoris; K29.00 Acute gastritis without bleeding; E86.0 Dehydration; D64.9 Anemia, unspecified; R53.81 Other malaise; E89.0 Postprocedural hypothyroidism; K59.00 Constipation, unspecified; I95.9 Hypotension, unspecified; K21.9 Gastro-esophageal reflux disease without esophagitis; Z79.82 Long term (current) use of aspirin; Z79.52 Long term (current) use of systemic steroids; Z88.5 Allergy status to narcotic agent; Z79.899 Other long term (current) drug therapy; Z90.5 Acquired absence of kidney; Z90.710 Acquired absence of both cervix and uterus; Z99.2 Dependence on renal dialysis; Z85.038 Personal history of other malignant neoplasm of large intestine; R53.1 Weakness; R79.89 Other specified abnormal findings of blood chemistry
CPT/HCPCS: 36415; 36416; 71045; 74176; 80048; 80053; 81001; 82533; 83605; 83735; 83880; 84439; 84443; 84484; 85025; 87040; 87324; 87449; 93005; 93306; 96374; C9113; J0696; J1644; J1720; J1940; J2405; J7030

== ENCOUNTER 2024-03-23 14:40 | Inpatient (IN) | payer MEDICARE, BC ==
[2024-03-23 16:09] LABS: #Basophils 0.03 10x3/uL (0.0-0.2); %Basophils 0.5 % (0.0-1.0); %Eosinophils 2.3 % (0.0-10.0); %Lymphocytes 15.6 % (21.0-51.0); %Monocytes 10.7 % (0.0-10.0); Hematocrit 29.2 % (36.0-47.0); Hemoglobin 9.6 g/dL (12.0-16.0); Mean Corpuscular HGB CONC 32.9 g/dL (32.0-36.0); Mean Corpuscular Hemoglobin 32.7 pg (27.0-31.0); Mean Corpuscular Volume 99.3 fL (78.0-98.0); Platelet Count 162 10x3/uL (130-400); RBC Distribution Width 13.5 % (11.5-14.5); Red Blood Cell (RBC) Count 2.94 mill/uL (4.20-5.40)
[2024-03-23 16:22] LABS: ALT (SGPT) 27 U/L (8-55); AST (SGOT) 12 U/L (5-34); Alkaline Phosphatase 148 U/L (40-110); Anion Gap 17 mmol/L (10-20); BUN (Urea Nitrogen) 89 mg/dL (9.8-20.1); Bilirubin, Total 0.4 mg/dL (0.2-1.2); Calc. Creatinine Clearance 0 mL/min (70-130); Calcium 8.2 mg/dL (7.8-10.44); Carbon Dioxide 25 mmol/L (23-31); Chloride 105 mmol/L (98-107); Estimated GFR 5; Globulin 2.7 g/dL (2.4-3.5); Glucose 69 mg/dL (83-110); Lipase 58 U/L (8-78); Magnesium 1.9 mg/dL (1.6-2.6); Potassium 5.8 mmol/L (3.5-5.1); Protein, Total 5.7 g/dL (5.8-8.1); Sodium 141 mmol/L (136-145)
[2024-03-23 16:27] LABS: Troponin I Less than 0.010 ng/mL (< 0.028)
[2024-03-23 16:31] LABS: INR-International Normal Ratio 1.1; PTT 28.9 sec (22.9-36.1); Prothrombin Time 14.2 sec (12.0-14.7)
[2024-03-23 18:13] LABS: Bilirubin Negative (Negative); Blood, Urine Negative (Negative); CAUTI Indications for Culture Pelvic or flank pain; Clarity Clear (Clear); Glucose, Urine (Dipstick) Normal (Negative); Ketone, Urine Negative (Negative); Leukocyte Negative Leu/uL (Negative); Nitrite Negative (Negative); Protein, Urine (Dipstick) 50 mg/dL (Neg-Trace); RBC/HPF 0-3 HPF (0-3); Specific Gravity, Urine 1.011 (1.002-1.036); Urobilinogen Normal mg/dL (Less than 2); WBC/HPF 0-3 HPF (0-3); pH, Urine 7.5 (5.0-9.0)
[2024-03-23 18:15] LABS: Bacteria/HPF 1+ HPF (None Seen)
[2024-03-23 18:16] LABS: Yeast-Budding 1+ HPF (None Seen)
[2024-03-23 18:17] LABS: Urine Culture Reflex No No
[2024-03-23] MEDS ORDERED: Acetaminophen 325 MG TAB PO PRN (20:36)
[2024-03-23] MEDS ORDERED: Ondansetron ODT 4 MG TAB PO PRN (20:36)
[2024-03-23] MEDS ORDERED: Ondansetron PF 4 MG/2 ML Vial IVP PRN (20:36)
[2024-03-23] MEDS: Acetaminophen 325 MG TAB PO SCH (22:21)
[2024-03-23] MEDS: Pantoprazole 40 MG VIAL IVP SCH (22:21)
[2024-03-23 22:48] VITALS: BMI 28.7
[2024-03-24 05:36] LABS: #Basophils Less than 0.03 10x3/uL (0.0-0.2); %Basophils 0.2 % (0.0-1.0); %Eosinophils 2.4 % (0.0-10.0); %Lymphocytes 13.6 % (21.0-51.0); %Neutrophils 72.8 % (42.0-75.0); Hematocrit 28.9 % (36.0-47.0); Hemoglobin 9.5 g/dL (12.0-16.0); Mean Corpuscular HGB CONC 32.9 g/dL (32.0-36.0); Mean Corpuscular Hemoglobin 32.2 pg (27.0-31.0); Platelet Count 144 10x3/uL (130-400); RBC Distribution Width 13.2 % (11.5-14.5); Red Blood Cell (RBC) Count 2.95 mill/uL (4.20-5.40)
[2024-03-24 06:01] LABS: Anion Gap 16 mmol/L (10-20); BUN (Urea Nitrogen) 26 mg/dL (9.8-20.1); Calc. Creatinine Clearance 28 mL/min (70-130); Carbon Dioxide 25 mmol/L (23-31); Chloride 101 mmol/L (98-107); Estimated GFR 18; Glucose 72 mg/dL (83-110); Potassium 3.2 mmol/L (3.5-5.1); Sodium 139 mmol/L (136-145)
[2024-03-24] MEDS: Hydrocortisone 10 mg Tablet PO SCH (08:00)
[2024-03-24] MEDS: Pantoprazole 40 MG VIAL IVP SCH (08:01)
[2024-03-24] MEDS ORDERED: Loperamide HCl 2 MG CAP PO PRN (10:17)
[2024-03-24] MEDS: Cholestyramine/Aspartame 4 gm Packet PO SCH (11:41)
[2024-03-25] MEDS: Amlodipine 10 MG TAB PO SCH ×2 (13:34→13:39)
[2024-03-25] MEDS: Gabapentin 100 MG CAP PO SCH (20:12)
[2024-03-26] MEDS: Levothyroxine Sodium 100 MCG TAB PO SCH (05:24)
[2024-03-26] MEDS: Amlodipine 10 MG TAB PO SCH (08:35)
[2024-03-26] MEDS: Cinacalcet HCl 30 MG TAB PO SCH (08:35)
[2024-03-26] MEDS: Pantoprazole DR 40 MG TAB PO SCH (08:36)
[2024-03-26] MEDS: Aspirin Chewable 81 MG TAB PO SCH (08:42)
[2024-03-26] MEDS: Methimazole 5 MG TAB PO SCH (08:43)
[2024-03-26 09:45] VITALS: TEMP 98
[2024-03-26 10:20] VITALS: BP 127/86
== END 2024-03-26 12:03 | disposition home or self-care (01) | DRG 640 ==
LOC: ERS 14:40 → T4-B 20:21 → INTOOBSV 20:21 → OBSVTOIN 03-26 09:14
PROVIDERS: ADMIT Student in an Organized Health Care Education/Training Program; ATTEND Internal Medicine
DX: E87.5 Hyperkalemia (principal); N18.6 End stage renal disease; K52.9 Noninfective gastroenteritis and colitis, unspecified; Z99.2 Dependence on renal dialysis; I25.10 Atherosclerotic heart disease of native coronary artery without angina pectoris; E11.22 Type 2 diabetes mellitus with diabetic chronic kidney disease; E03.9 Hypothyroidism, unspecified; D63.1 Anemia in chronic kidney disease; Z88.5 Allergy status to narcotic agent; Z79.82 Long term (current) use of aspirin; Z79.899 Other long term (current) drug therapy; Z90.710 Acquired absence of both cervix and uterus; Z98.890 Other specified postprocedural states
CPT/HCPCS: 36415; 36416; 71045; 74176; 80048; 80053; 81001; 83605; 83690; 83735; 83880; 84484; 85025; 85610; 85730; 93005; 96374; 96376; C9113; G0378

== ENCOUNTER 2024-07-01 09:20 | Inpatient (IN) | payer MEDICARE, BC ==
[2024-07-01] MEDS ORDERED: hydrALAZINE 20 MG/ML VIAL ONE (09:48)
[2024-07-01] MEDS ORDERED: Lorazepam 2 MG/ML VIAL ONE (09:48)
[2024-07-01 10:16] LABS: #Basophils Less than 0.03 10x3/uL (0.0-0.2); %Basophils 0.4 % (0.0-1.0); %Eosinophils 2.2 % (0.0-10.0); %Lymphocytes 11.5 % (21.0-51.0); %Monocytes 9.1 % (0.0-10.0); %Neutrophils 76.6 % (42.0-75.0); Hematocrit 27.2 % (36.0-47.0); Hemoglobin 8.8 g/dL (12.0-16.0); Mean Corpuscular HGB CONC 32.4 g/dL (32.0-36.0); Mean Corpuscular Hemoglobin 31.1 pg (27.0-31.0); Mean Corpuscular Volume 96.1 fL (78.0-98.0); Mean Platelet Volume 9.5 fL (7.4-10.4); Platelet Count 158 10x3/uL (130-400); RBC Distribution Width 14.8 % (11.5-14.5); Red Blood Cell (RBC) Count 2.83 mill/uL (4.20-5.40)
[2024-07-01 10:37] LABS: ALT (SGPT) 9 U/L (8-55); AST (SGOT) 9 U/L (5-34); Albumin 3.3 g/dL (3.4-4.8); Alkaline Phosphatase 130 U/L (40-110); Anion Gap 17 mmol/L (10-20); BUN (Urea Nitrogen) 98 mg/dL (9.8-20.1); Bilirubin, Total 0.5 mg/dL (0.2-1.2); Calc. Creatinine Clearance 0 mL/min (70-130); Calcium 9.2 mg/dL (7.8-10.44); Carbon Dioxide 23 mmol/L (23-31); Chloride 109 mmol/L (98-107); Estimated GFR 5; Glucose 95 mg/dL (83-110); Lipase 61 U/L (8-78); Potassium 3.9 mmol/L (3.5-5.1); Protein, Total 6.3 g/dL (5.8-8.1); Sodium 145 mmol/L (136-145)
[2024-07-01 10:42] LABS: Troponin I 0.028 ng/mL (< 0.028)
[2024-07-01] MEDS ORDERED: Acetaminophen 650 MG Suppository PR PRN (17:17)
[2024-07-01] MEDS ORDERED: Ondansetron ODT 4 MG TAB PO PRN (17:17)
[2024-07-01 20:54] VITALS: BMI 26.3
[2024-07-01] MEDS: QUEtiapine 25 MG TAB PO SCH (22:08)
[2024-07-01] MEDS: Heparin 5,000 UNITS/ML VIAL SC SCH (22:10)
[2024-07-02] MEDS: Amlodipine 10 MG TAB PO SCH (05:14)
[2024-07-02] MEDS: Levothyroxine Sodium 100 MCG TAB PO SCH (05:14)
[2024-07-02] MEDS: Acetaminophen 325 MG TAB PO PRN (08:52)
[2024-07-02] MEDS ORDERED: Amlodipine 10 MG TAB PO SCH (09:00)
[2024-07-02] MEDS: hydrALAZINE 25 MG TAB PO SCH ×2 (15:25→20:25)
[2024-07-02] MEDS: Gabapentin 100 MG CAP PO SCH (20:24)
[2024-07-02] MEDS: Sertraline 100 MG TAB PO SCH (20:27)
[2024-07-02] MEDS ORDERED: hydrALAZINE 25 MG TAB PO SCH (21:00)
[2024-07-03] MEDS: Amlodipine 10 MG TAB PO SCH (08:23)
[2024-07-03] MEDS: Sucralfate 1 GM TAB PO SCH (08:23)
[2024-07-03] MEDS: Pantoprazole DR 40 MG TAB PO SCH (08:24)
[2024-07-03] MEDS: Aspirin Chewable 81 MG TAB PO SCH (08:24)
[2024-07-03] MEDS: Hydrocortisone 10 mg Tablet PO SCH ×2 (08:27→12:16)
[2024-07-03] MEDS ORDERED: Fludrocortisone Acetate 0.1 MG TAB PO SCH (09:00)
[2024-07-03 14:20] LABS: Anion Gap 11 mmol/L (10-20); BUN (Urea Nitrogen) 38 mg/dL (9.8-20.1); Calc. Creatinine Clearance 13 mL/min (70-130); Calcium 8.8 mg/dL (7.8-10.44); Carbon Dioxide 28 mmol/L (23-31); Chloride 106 mmol/L (98-107); Estimated GFR 8; Glucose 102 mg/dL (83-110); Sodium 141 mmol/L (136-145)
[2024-07-04 14:09] LABS: Anion Gap 12 mmol/L (10-20); BUN (Urea Nitrogen) 15 mg/dL (9.8-20.1); Calc. Creatinine Clearance 24 mL/min (70-130); Calcium 8.8 mg/dL (7.8-10.44); Carbon Dioxide 28 mmol/L (23-31); Chloride 102 mmol/L (98-107); Estimated GFR 18; Glucose 77 mg/dL (83-110); Potassium 3.4 mmol/L (3.5-5.1); Sodium 139 mmol/L (136-145)
[2024-07-06 15:24] LABS: #Basophils 0.04 10x3/uL (0.0-0.2); %Eosinophils 7.2 % (0.0-10.0); %Lymphocytes 18.9 % (21.0-51.0); %Monocytes 8.7 % (0.0-10.0); Hematocrit 26.6 % (36.0-47.0); Hemoglobin 8.3 g/dL (12.0-16.0); Mean Corpuscular HGB CONC 31.2 g/dL (32.0-36.0); Mean Corpuscular Hemoglobin 30.2 pg (27.0-31.0); Mean Corpuscular Volume 96.7 fL (78.0-98.0); Mean Platelet Volume 9.4 fL (7.4-10.4); Platelet Count 148 10x3/uL (130-400); RBC Distribution Width 14.1 % (11.5-14.5); Red Blood Cell (RBC) Count 2.75 mill/uL (4.20-5.40)
[2024-07-06 15:59] LABS: ALT (SGPT) 5 U/L (8-55); AST (SGOT) 7 U/L (5-34); Albumin 2.8 g/dL (3.4-4.8); Alkaline Phosphatase 103 U/L (40-110); Anion Gap 14 mmol/L (10-20); BUN (Urea Nitrogen) 38 mg/dL (9.8-20.1); Bilirubin, Total 0.3 mg/dL (0.2-1.2); Calc. Creatinine Clearance 10 mL/min (70-130); Calcium 8.7 mg/dL (7.8-10.44); Carbon Dioxide 27 mmol/L (23-31); Chloride 102 mmol/L (98-107); Estimated GFR 6; Globulin 2.6 g/dL (2.4-3.5); Glucose 108 mg/dL (83-110); Potassium 4.2 mmol/L (3.5-5.1); Protein, Total 5.4 g/dL (5.8-8.1); Sodium 139 mmol/L (136-145)
[2024-07-07] MEDS ORDERED: Heparin 10,000 UNITS/ 10 ML VIAL ONE (10:33)
[2024-07-07] MEDS: EPOETIN ALFA-EPBX (ESRD) 10,000 UNITS/ML VIAL IVP SCH (12:22)
[2024-07-07 12:47] VITALS: BP 120/76; TEMP 96.8
[2024-07-14] MEDS ORDERED: Ergocalciferol 1.25 MG(50,000 UNITS) CAP PO SCH (09:00)
== END 2024-07-07 14:25 | disposition home health service (06) | DRG 304 ==
LOC: ERS 09:20 → 2NO 17:19 → T4-B 07-02 22:20
PROVIDERS: ADMIT Internal Medicine; ATTEND Internal Medicine
PROC: 5A1D70Z Performance of Urinary Filtration, Intermittent, Less than 6 Hours Per Day (ICD-10-PCS; principal; 2024-07-01)
PROC: 5A1D70Z Performance of Urinary Filtration, Intermittent, Less than 6 Hours Per Day (ICD-10-PCS; 2024-07-01)
DX: I16.1 Hypertensive emergency (principal); G93.41 Metabolic encephalopathy; N18.6 End stage renal disease; E27.1 Primary adrenocortical insufficiency; I25.10 Atherosclerotic heart disease of native coronary artery without angina pectoris; E03.9 Hypothyroidism, unspecified; E11.22 Type 2 diabetes mellitus with diabetic chronic kidney disease; Z90.710 Acquired absence of both cervix and uterus; Z88.5 Allergy status to narcotic agent; Z99.2 Dependence on renal dialysis; Z90.49 Acquired absence of other specified parts of digestive tract; Z83.3 Family history of diabetes mellitus; D63.1 Anemia in chronic kidney disease; Z66 Do not resuscitate; R53.81 Other malaise; Z88.6 Allergy status to analgesic agent; Z91.148 Patient's other noncompliance with medication regimen for other reason; Z91.158 Patient's noncompliance with renal dialysis for other reason
CPT/HCPCS: 36415; 36416; 71045; 80048; 80053; 82306; 83690; 83970; 84443; 84484; 85025; 90935; 93005; 96374; 96375; G0257; J0360; J1644; J2060; Q5105

== ENCOUNTER 2024-07-09 23:29 | Inpatient (IN) | payer MEDICARE, BC ==
[2024-07-10 00:34] LABS: #Basophils 0.04 10x3/uL (0.0-0.2); %Basophils 0.7 % (0.0-1.0); %Eosinophils 4.2 % (0.0-10.0); %Neutrophils 71.7 % (42.0-75.0); Hemoglobin 9.7 g/dL (12.0-16.0); Mean Corpuscular HGB CONC 32.3 g/dL (32.0-36.0); Mean Corpuscular Hemoglobin 30.5 pg (27.0-31.0); Mean Corpuscular Volume 94.3 fL (78.0-98.0); Mean Platelet Volume 9.8 fL (7.4-10.4); Platelet Count 194 10x3/uL (130-400); RBC Distribution Width 14.3 % (11.5-14.5); Red Blood Cell (RBC) Count 3.18 mill/uL (4.20-5.40)
[2024-07-10 00:56] LABS: Troponin I 0.029 ng/mL (< 0.028)
[2024-07-10 00:59] LABS: ALT (SGPT) 6 U/L (8-55); AST (SGOT) 9 U/L (5-34); Albumin 3.6 g/dL (3.4-4.8); Alkaline Phosphatase 120 U/L (40-110); Anion Gap 16 mmol/L (10-20); BUN (Urea Nitrogen) 39 mg/dL (9.8-20.1); Bilirubin, Total 0.5 mg/dL (0.2-1.2); Calc. Creatinine Clearance 0 mL/min (70-130); Calcium 9.6 mg/dL (7.8-10.44); Carbon Dioxide 26 mmol/L (23-31); Chloride 103 mmol/L (98-107); Estimated GFR 5; Globulin 3.3 g/dL (2.4-3.5); Glucose 94 mg/dL (83-110); Potassium 4.3 mmol/L (3.5-5.1); Protein, Total 6.9 g/dL (5.8-8.1); Sodium 141 mmol/L (136-145)
[2024-07-10 01:23] LABS: Bacteria/HPF 1+ HPF (None Seen); Bilirubin Negative (Negative); Blood, Urine 1+ (Negative); CAUTI Indications for Culture Alt mental st,lethar; Clarity Turbid (Clear); Glucose, Urine (Dipstick) Normal (Negative); Ketone, Urine Negative (Negative); Leukocyte 500 Leu/uL (Negative); Nitrite Negative (Negative); Protein, Urine (Dipstick) 300 mg/dL (Neg-Trace); Specific Gravity, Urine 1.006 (1.002-1.036); Squamous Epithelial 0-3 HPF (0-3); Urobilinogen Normal mg/dL (Less than 2); WBC/HPF Greater than 50 HPF (0-3); pH, Urine 7.5 (5.0-9.0)
[2024-07-10 01:24] LABS: Urine Culture Reflex Yes Yes
[2024-07-10] MEDS ORDERED: cefTRIAXone (ROCEPHIN) 1 GM VIAL ONE (03:33)
[2024-07-10] MEDS ORDERED: Sodium Chloride 0.9% 100 ML ONE (03:33)
[2024-07-10] MEDS ORDERED: Ondansetron PF 4 MG/2 ML Vial IVP PRN (03:52)
[2024-07-10] MEDS ORDERED: Acetaminophen 650 MG Suppository PR PRN (03:52)
[2024-07-10] MEDS ORDERED: Ondansetron ODT 4 MG TAB PO PRN ×2 (03:52→04:07)
[2024-07-10] MEDS ORDERED: Sucralfate 1 GM TAB PO PRN (04:07)
[2024-07-10 04:23] VITALS: BMI 26.5
[2024-07-10] MEDS ORDERED: hydrALAZINE 20 MG/ML VIAL ONE (06:11)
[2024-07-10] MEDS: Levothyroxine Sodium 100 MCG TAB PO SCH (06:16)
[2024-07-10] MEDS: hydrALAZINE 20 MG/ML VIAL SLOW IVP SCH (06:16)
[2024-07-10] MEDS ORDERED: Heparin 10,000 UNITS/ 10 ML VIAL ONE (10:12)
[2024-07-10] MEDS ORDERED: Amlodipine 5 MG TAB ONE (10:13)
[2024-07-10] MEDS ORDERED: hydrALAZINE 25 MG TAB ONE (10:13)
[2024-07-10] MEDS ORDERED: Sucralfate 1 GM/10 ML UDCUP ONE (10:13)
[2024-07-10] MEDS ORDERED: Heparin 5,000 UNITS/ML VIAL ONE (10:14)
[2024-07-10] MEDS ORDERED: Aspirin Chewable 81 MG TAB ONE (10:14)
[2024-07-10] MEDS ORDERED: Metoprolol Tartrate 50 MG TAB ONE (10:14)
[2024-07-10] MEDS ORDERED: Pantoprazole DR 40 MG TAB ONE (10:14)
[2024-07-10] MEDS: Aspirin Chewable 81 MG TAB PO SCH (10:59)
[2024-07-10] MEDS: Sucralfate 1 GM TAB PO SCH (10:59)
[2024-07-10] MEDS: Amlodipine 10 MG TAB PO SCH (10:59)
[2024-07-10] MEDS: Heparin 5,000 UNITS/ML VIAL SC SCH (11:00)
[2024-07-10] MEDS: hydrALAZINE 25 MG TAB PO SCH (11:00)
[2024-07-10] MEDS: Pantoprazole DR 40 MG TAB PO SCH (11:00)
[2024-07-10] MEDS: Hydrocortisone 10 mg Tablet PO SCH (18:14)
[2024-07-10] MEDS: cefTRIAXone\\ROCEPHIN 1 GM in Sodium Chloride 0.9% 100 ML IVPB SCH (18:22)
[2024-07-10] MEDS: cefTRIAXone\\ROCEPHIN 2 GM in Sodium Chloride 0.9% 100 ML IVPB SCH (18:22)
[2024-07-10] MEDS: Gabapentin 100 MG CAP PO SCH (21:39)
[2024-07-10] MEDS: QUEtiapine 25 MG TAB PO SCH (21:40)
[2024-07-10] MEDS: Sertraline 100 MG TAB PO SCH (21:41)
[2024-07-11] MEDS: cefTRIAXone\\ROCEPHIN 2 GM in Sodium Chloride 0.9% 100 ML IVPB SCH (05:23)
[2024-07-11] MEDS: HYDROcodone/Acetaminophen 5/325 mg Tablet PO SCH (16:41)
[2024-07-12 12:18] LABS: #Basophils 0.04 10x3/uL (0.0-0.2); %Basophils 0.8 % (0.0-1.0); %Eosinophils 3.3 % (0.0-10.0); %Lymphocytes 20.4 % (21.0-51.0); %Monocytes 10.2 % (0.0-10.0); %Neutrophils 64.9 % (42.0-75.0); Hematocrit 29.5 % (36.0-47.0); Hemoglobin 9.5 g/dL (12.0-16.0); Mean Corpuscular HGB CONC 32.2 g/dL (32.0-36.0); Mean Corpuscular Hemoglobin 30.2 pg (27.0-31.0); Mean Corpuscular Volume 93.7 fL (78.0-98.0); Mean Platelet Volume 9.5 fL (7.4-10.4); Platelet Count 200 10x3/uL (130-400); RBC Distribution Width 14.8 % (11.5-14.5); Red Blood Cell (RBC) Count 3.15 mill/uL (4.20-5.40)
[2024-07-12 12:39] LABS: Albumin 3.2 g/dL (3.4-4.8); Anion Gap 15 mmol/L (10-20); BUN (Urea Nitrogen) 38 mg/dL (9.8-20.1); BUN/Creatinine Ratio 4.16; Calc. Creatinine Clearance 7 mL/min (70-130); Calcium 9.3 mg/dL (7.8-10.44); Carbon Dioxide 24 mmol/L (23-31); Chloride 103 mmol/L (98-107); Estimated GFR 4; Glucose 113 mg/dL (83-110); Phosphorus 5.5 mg/dL (2.3-4.7); Potassium 4.2 mmol/L (3.5-5.1); Sodium 138 mmol/L (136-145)
[2024-07-13 05:54] LABS: #Basophils 0.03 10x3/uL (0.0-0.2); %Basophils 0.6 % (0.0-1.0); %Eosinophils 3.4 % (0.0-10.0); %Lymphocytes 20.1 % (21.0-51.0); %Monocytes 12.5 % (0.0-10.0); Hemoglobin 8.8 g/dL (12.0-16.0); Mean Corpuscular HGB CONC 31.4 g/dL (32.0-36.0); Mean Corpuscular Hemoglobin 30.3 pg (27.0-31.0); Mean Corpuscular Volume 96.6 fL (78.0-98.0); Mean Platelet Volume 9.4 fL (7.4-10.4); Platelet Count 202 10x3/uL (130-400); RBC Distribution Width 14.6 % (11.5-14.5)
[2024-07-13 06:10] LABS: Anion Gap 16 mmol/L (10-20); BUN (Urea Nitrogen) 50 mg/dL (9.8-20.1); BUN/Creatinine Ratio 5.26; Calc. Creatinine Clearance 7 mL/min (70-130); Calcium 8.9 mg/dL (7.8-10.44); Carbon Dioxide 24 mmol/L (23-31); Chloride 102 mmol/L (98-107); Estimated GFR 4; Glucose 88 mg/dL (83-110); Phosphorus 5.4 mg/dL (2.3-4.7); Potassium 3.8 mmol/L (3.5-5.1); Sodium 138 mmol/L (136-145)
[2024-07-13] MEDS ORDERED: Heparin 10,000 UNITS/ 10 ML VIAL ONE (08:49)
[2024-07-14 08:37] LABS: #Basophils 0.03 10x3/uL (0.0-0.2); %Basophils 0.6 % (0.0-1.0); %Eosinophils 3.2 % (0.0-10.0); %Monocytes 11.1 % (0.0-10.0); %Neutrophils 71.9 % (42.0-75.0); Hematocrit 27.7 % (36.0-47.0); Mean Corpuscular HGB CONC 32.5 g/dL (32.0-36.0); Mean Corpuscular Hemoglobin 30.3 pg (27.0-31.0); Mean Corpuscular Volume 93.3 fL (78.0-98.0); Mean Platelet Volume 9.8 fL (7.4-10.4); Platelet Count 154 10x3/uL (130-400); RBC Distribution Width 14.6 % (11.5-14.5); Red Blood Cell (RBC) Count 2.97 mill/uL (4.20-5.40)
[2024-07-14 08:49] LABS: Anion Gap 12 mmol/L (10-20); BUN (Urea Nitrogen) 24 mg/dL (9.8-20.1); Calc. Creatinine Clearance 10 mL/min (70-130); Carbon Dioxide 29 mmol/L (23-31); Chloride 103 mmol/L (98-107); Estimated GFR 7; Glucose 88 mg/dL (83-110); Potassium 3.8 mmol/L (3.5-5.1); Sodium 140 mmol/L (136-145)
[2024-07-15 06:47] LABS: #Basophils 0.06 10x3/uL (0.0-0.2); %Basophils 1.5 % (0.0-1.0); %Eosinophils 6.4 % (0.0-10.0); %Lymphocytes 25.3 % (21.0-51.0); %Neutrophils 57.3 % (42.0-75.0); Hematocrit 28.3 % (36.0-47.0); Hemoglobin 8.8 g/dL (12.0-16.0); Mean Corpuscular HGB CONC 31.1 g/dL (32.0-36.0); Mean Corpuscular Hemoglobin 30.1 pg (27.0-31.0); Mean Corpuscular Volume 96.9 fL (78.0-98.0); Mean Platelet Volume 10.1 fL (7.4-10.4); Platelet Count 168 10x3/uL (130-400); RBC Distribution Width 14.6 % (11.5-14.5); Red Blood Cell (RBC) Count 2.92 mill/uL (4.20-5.40)
[2024-07-15] MEDS: Acetaminophen 325 MG TAB PO PRN (21:11)
[2024-07-16 10:49] LABS: #Basophils 0.06 10x3/uL (0.0-0.2); %Basophils 0.8 % (0.0-1.0); %Eosinophils 6.7 % (0.0-10.0); %Lymphocytes 11.9 % (21.0-51.0); %Neutrophils 71.2 % (42.0-75.0); Hematocrit 30.3 % (36.0-47.0); Hemoglobin 9.6 g/dL (12.0-16.0); Mean Corpuscular HGB CONC 31.7 g/dL (32.0-36.0); Mean Corpuscular Volume 94.7 fL (78.0-98.0); Mean Platelet Volume 9.7 fL (7.4-10.4); Platelet Count 169 10x3/uL (130-400); RBC Distribution Width 14.6 % (11.5-14.5)
[2024-07-16 12:28] LABS: HBsAg Index 0.27 S/CO (0-0.99); Hep B Core Total Ab NONREACTIVE (NonReactive); Hep B Core Total Index 0.33 S/CO (0-0.79); Hep B Surf AB REACTIVE (NonReactive); Hep B Surf Ag NONREACTIVE S/CO (NonReactive); Hep C IgG Ab NONREACTIVE S/CO (NonReactive); Hep C Index 0.17 S/CO (0-0.79)
[2024-07-17 04:44] LABS: #Basophils 0.03 10x3/uL (0.0-0.2); %Basophils 0.5 % (0.0-1.0); %Eosinophils 7.4 % (0.0-10.0); %Lymphocytes 16.5 % (21.0-51.0); %Monocytes 9.5 % (0.0-10.0); %Neutrophils 65.8 % (42.0-75.0); Hemoglobin 9.1 g/dL (12.0-16.0); Mean Corpuscular HGB CONC 32.5 g/dL (32.0-36.0); Mean Corpuscular Hemoglobin 30.1 pg (27.0-31.0); Mean Corpuscular Volume 92.7 fL (78.0-98.0); Mean Platelet Volume 10.2 fL (7.4-10.4); Platelet Count 171 10x3/uL (130-400); RBC Distribution Width 14.6 % (11.5-14.5); Red Blood Cell (RBC) Count 3.02 mill/uL (4.20-5.40)
[2024-07-17] MEDS ORDERED: Heparin 10,000 UNITS/ 10 ML VIAL ONE (09:43)
[2024-07-17 11:19] VITALS: BMI 26.5
[2024-07-18 14:29] LABS: #Basophils 0.04 10x3/uL (0.0-0.2); %Basophils 0.9 % (0.0-1.0); %Eosinophils 5.5 % (0.0-10.0); %Lymphocytes 19.7 % (21.0-51.0); %Monocytes 9.2 % (0.0-10.0); %Neutrophils 64.7 % (42.0-75.0); Hematocrit 31.5 % (36.0-47.0); Hemoglobin 9.9 g/dL (12.0-16.0); Mean Corpuscular HGB CONC 31.4 g/dL (32.0-36.0); Mean Corpuscular Volume 95.5 fL (78.0-98.0); Mean Platelet Volume 10.4 fL (7.4-10.4); Platelet Count 181 10x3/uL (130-400); RBC Distribution Width 14.8 % (11.5-14.5)
[2024-07-19 09:51] LABS: #Basophils 0.08 10x3/uL (0.0-0.2); %Basophils 1.8 % (0.0-1.0); %Eosinophils 9.1 % (0.0-10.0); %Lymphocytes 24.1 % (21.0-51.0); %Monocytes 9.3 % (0.0-10.0); %Neutrophils 55.2 % (42.0-75.0); Hematocrit 29.7 % (36.0-47.0); Hemoglobin 9.4 g/dL (12.0-16.0); Mean Corpuscular HGB CONC 31.6 g/dL (32.0-36.0); Mean Corpuscular Hemoglobin 30.2 pg (27.0-31.0); Mean Corpuscular Volume 95.5 fL (78.0-98.0); Mean Platelet Volume 9.5 fL (7.4-10.4); Platelet Count 164 10x3/uL (130-400); RBC Distribution Width 14.6 % (11.5-14.5); Red Blood Cell (RBC) Count 3.11 mill/uL (4.20-5.40)
[2024-07-19 10:05] LABS: Anion Gap 16 mmol/L (10-20); BUN (Urea Nitrogen) 42 mg/dL (9.8-20.1); Calc. Creatinine Clearance 9 mL/min (70-130); Carbon Dioxide 26 mmol/L (23-31); Chloride 99 mmol/L (98-107); Estimated GFR 5; Glucose 92 mg/dL (83-110); Potassium 4.1 mmol/L (3.5-5.1); Sodium 137 mmol/L (136-145)
[2024-07-20 06:19] LABS: #Basophils 0.06 10x3/uL (0.0-0.2); %Basophils 1.2 % (0.0-1.0); %Eosinophils 7.8 % (0.0-10.0); %Lymphocytes 17.8 % (21.0-51.0); Hematocrit 28.4 % (36.0-47.0); Hemoglobin 9.1 g/dL (12.0-16.0); Mean Corpuscular Volume 93.7 fL (78.0-98.0); Mean Platelet Volume 10.4 fL (7.4-10.4); Platelet Count 194 10x3/uL (130-400); RBC Distribution Width 14.5 % (11.5-14.5); Red Blood Cell (RBC) Count 3.03 mill/uL (4.20-5.40)
[2024-07-20 06:45] LABS: Anion Gap 16 mmol/L (10-20); BUN (Urea Nitrogen) 54 mg/dL (9.8-20.1); Calc. Creatinine Clearance 7 mL/min (70-130); Calcium 8.9 mg/dL (7.8-10.44); Carbon Dioxide 24 mmol/L (23-31); Chloride 99 mmol/L (98-107); Estimated GFR 4; Glucose 91 mg/dL (83-110); Potassium 4.1 mmol/L (3.5-5.1); Sodium 135 mmol/L (136-145)
[2024-07-21] MEDS: Amlodipine 10 MG TAB PO SCH (09:31)
[2024-07-21 09:42] LABS: #Basophils 0.03 10x3/uL (0.0-0.2); %Basophils 0.7 % (0.0-1.0); %Eosinophils 6.3 % (0.0-10.0); %Lymphocytes 18.5 % (21.0-51.0); %Monocytes 8.9 % (0.0-10.0); %Neutrophils 65.2 % (42.0-75.0); Hematocrit 29.5 % (36.0-47.0); Hemoglobin 9.1 g/dL (12.0-16.0); Mean Corpuscular HGB CONC 30.8 g/dL (32.0-36.0); Mean Corpuscular Volume 97.4 fL (78.0-98.0); Platelet Count 162 10x3/uL (130-400); RBC Distribution Width 14.6 % (11.5-14.5); Red Blood Cell (RBC) Count 3.03 mill/uL (4.20-5.40)
[2024-07-21 09:59] LABS: Anion Gap 13 mmol/L (10-20); BUN (Urea Nitrogen) 34 mg/dL (9.8-20.1); Calc. Creatinine Clearance 12 mL/min (70-130); Carbon Dioxide 28 mmol/L (23-31); Chloride 104 mmol/L (98-107); Estimated GFR 7; Glucose 87 mg/dL (83-110); Sodium 141 mmol/L (136-145)
[2024-07-22] MEDS ORDERED: Heparin 10,000 UNITS/ 10 ML VIAL ONE (08:39)
[2024-07-22 09:52] LABS: #Basophils 0.07 10x3/uL (0.0-0.2); %Basophils 1.9 % (0.0-1.0); %Eosinophils 6.9 % (0.0-10.0); %Lymphocytes 26.1 % (21.0-51.0); %Monocytes 10.4 % (0.0-10.0); %Neutrophils 54.2 % (42.0-75.0); Hematocrit 26.7 % (36.0-47.0); Hemoglobin 8.4 g/dL (12.0-16.0); Mean Corpuscular HGB CONC 31.5 g/dL (32.0-36.0); Mean Corpuscular Hemoglobin 30.3 pg (27.0-31.0); Mean Corpuscular Volume 96.4 fL (78.0-98.0); Mean Platelet Volume 10.9 fL (7.4-10.4); Platelet Count 166 10x3/uL (130-400); RBC Distribution Width 14.6 % (11.5-14.5); Red Blood Cell (RBC) Count 2.77 mill/uL (4.20-5.40)
[2024-07-22 09:58] LABS: Anion Gap 14 mmol/L (10-20); BUN (Urea Nitrogen) 42 mg/dL (9.8-20.1); Calc. Creatinine Clearance 10 mL/min (70-130); Calcium 8.6 mg/dL (7.8-10.44); Carbon Dioxide 26 mmol/L (23-31); Chloride 104 mmol/L (98-107); Estimated GFR 7; Glucose 91 mg/dL (83-110); Potassium 3.9 mmol/L (3.5-5.1); Sodium 140 mmol/L (136-145)
[2024-07-22] MEDS: EPOETIN ALFA-EPBX (ESRD) 10,000 UNITS/ML VIAL IVP SCH (13:56)
[2024-07-22] MEDS ORDERED: Non-Formulary Item 1 EACH (Sertraline Hcl [Sertraline Hcl] 50 MG Tablet) PO SCH (21:00)
[2024-07-23 07:25] LABS: #Basophils 0.08 10x3/uL (0.0-0.2); %Basophils 1.7 % (0.0-1.0); %Eosinophils 6.8 % (0.0-10.0); %Lymphocytes 21.4 % (21.0-51.0); %Monocytes 9.7 % (0.0-10.0); Hematocrit 29.8 % (36.0-47.0); Hemoglobin 9.6 g/dL (12.0-16.0); Mean Corpuscular HGB CONC 32.2 g/dL (32.0-36.0); Mean Corpuscular Hemoglobin 30.7 pg (27.0-31.0); Mean Corpuscular Volume 95.2 fL (78.0-98.0); Mean Platelet Volume 10.4 fL (7.4-10.4); Platelet Count 164 10x3/uL (130-400); RBC Distribution Width 14.6 % (11.5-14.5); Red Blood Cell (RBC) Count 3.13 mill/uL (4.20-5.40)
[2024-07-24 09:55] LABS: #Basophils 0.06 10x3/uL (0.0-0.2); %Basophils 1.4 % (0.0-1.0); %Eosinophils 7.2 % (0.0-10.0); %Lymphocytes 20.3 % (21.0-51.0); %Monocytes 7.6 % (0.0-10.0); Hematocrit 28.7 % (36.0-47.0); Hemoglobin 9.2 g/dL (12.0-16.0); Mean Corpuscular HGB CONC 32.1 g/dL (32.0-36.0); Mean Corpuscular Hemoglobin 30.3 pg (27.0-31.0); Mean Corpuscular Volume 94.4 fL (78.0-98.0); Mean Platelet Volume 10.4 fL (7.4-10.4); Platelet Count 169 10x3/uL (130-400); RBC Distribution Width 14.6 % (11.5-14.5); Red Blood Cell (RBC) Count 3.04 mill/uL (4.20-5.40)
[2024-07-24 16:03] VITALS: BP 94/60; TEMP 98.1
== END 2024-07-24 16:30 | DRG 689 ==
LOC: ERS 23:29 → ERHOLD 07-10 03:52 → SURG A 07-10 16:53
PROVIDERS: ADMIT Family Medicine; ATTEND Internal Medicine
PROC: 5A1D70Z Performance of Urinary Filtration, Intermittent, Less than 6 Hours Per Day (ICD-10-PCS; principal; 2024-07-24)
DX: N39.0 Urinary tract infection, site not specified (principal); G93.41 Metabolic encephalopathy; N18.6 End stage renal disease; I13.0 Hypertensive heart and chronic kidney disease with heart failure and stage 1 through stage 4 chronic kidney disease, or unspecified chronic kidney disease; I50.32 Chronic diastolic (congestive) heart failure; E87.1 Hypo-osmolality and hyponatremia; E05.90 Thyrotoxicosis, unspecified without thyrotoxic crisis or storm; F03.90 Unspecified dementia, unspecified severity, without behavioral disturbance, psychotic disturbance, mood disturbance, and anxiety; I25.10 Atherosclerotic heart disease of native coronary artery without angina pectoris; E11.22 Type 2 diabetes mellitus with diabetic chronic kidney disease; Z99.2 Dependence on renal dialysis; Z88.5 Allergy status to narcotic agent; H40.9 Unspecified glaucoma; E78.00 Pure hypercholesterolemia, unspecified; Z90.710 Acquired absence of both cervix and uterus; Z98.890 Other specified postprocedural states; Z86.73 Personal history of transient ischemic attack (TIA), and cerebral infarction without residual deficits; Z79.82 Long term (current) use of aspirin; Z79.01 Long term (current) use of anticoagulants; E03.9 Hypothyroidism, unspecified; D63.1 Anemia in chronic kidney disease
CPT/HCPCS: 36415; 36416; 51701; 70450; 80048; 80053; 80069; 81001; 83605; 84484; 85025; 86704; 86706; 86803; 87040; 87077; 87086; 87186; 87340; 90935; 93005; 96374; G0257; J0360; J0696; J1644

== ENCOUNTER 2024-08-22 17:08 | Inpatient (IN) | payer MEDICARE, BC ==
[2024-08-22 17:44] LABS: #Basophils 0.03 10x3/uL (0.0-0.2); %Basophils 0.5 % (0.0-1.0); %Eosinophils 1.7 % (0.0-10.0); %Lymphocytes 16.4 % (21.0-51.0); %Monocytes 10.1 % (0.0-10.0); Hematocrit 35.8 % (36.0-47.0); Hemoglobin 11.6 g/dL (12.0-16.0); Mean Corpuscular HGB CONC 32.4 g/dL (32.0-36.0); Mean Corpuscular Hemoglobin 30.9 pg (27.0-31.0); Mean Corpuscular Volume 95.2 fL (78.0-98.0); Mean Platelet Volume 9.6 fL (7.4-10.4); Platelet Count 171 10x3/uL (130-400); RBC Distribution Width 15.3 % (11.5-14.5); Red Blood Cell (RBC) Count 3.76 mill/uL (4.20-5.40)
[2024-08-22 18:03] LABS: ALT (SGPT) Less than 5 U/L (8-55); AST (SGOT) 10 U/L (5-34); Albumin 3.7 g/dL (3.4-4.8); Alkaline Phosphatase 114 U/L (40-110); Anion Gap 17 mmol/L (10-20); BUN (Urea Nitrogen) 28 mg/dL (9.8-20.1); Bilirubin, Total 0.4 mg/dL (0.2-1.2); Calc. Creatinine Clearance 0 mL/min (70-130); Calcium 9.5 mg/dL (7.8-10.44); Carbon Dioxide 26 mmol/L (23-31); Chloride 102 mmol/L (98-107); Estimated GFR 6; Globulin 3.5 g/dL (2.4-3.5); Glucose 143 mg/dL (83-110); Potassium 4.3 mmol/L (3.5-5.1); Protein, Total 7.2 g/dL (5.8-8.1); Sodium 141 mmol/L (136-145)
[2024-08-22 18:08] LABS: Troponin I Less than 0.010 ng/mL (< 0.028)
[2024-08-22 18:28] LABS: Bilirubin Negative (Negative); Blood, Urine 2+ (Negative); CAUTI Indications for Culture Alt mental st,lethar; Clarity Extra Turbid (Clear); Glucose, Urine (Dipstick) Normal (Negative); Ketone, Urine Negative (Negative); Leukocyte 500 Leu/uL (Negative); Nitrite Negative (Negative); Protein, Urine (Dipstick) 300 mg/dL (Neg-Trace); Specific Gravity, Urine 1.011 (1.002-1.036); WBC/HPF Greater than 50 HPF (0-3)
[2024-08-22 18:42] LABS: Bacteria/HPF 3+ HPF (None Seen)
[2024-08-22 18:45] LABS: Transitional Epithelial 0-3 HPF (None Seen)
[2024-08-22 18:46] LABS: Urine Culture Reflex Yes Yes
[2024-08-22] MEDS ORDERED: cefTRIAXone (ROCEPHIN) 1 GM VIAL ONE (20:44)
[2024-08-22] MEDS ORDERED: Sodium Chloride 0.9% 100 ML ONE (20:44)
[2024-08-22] MEDS ORDERED: Acetaminophen 325 MG TAB PO PRN ×2 (23:15→23:22)
[2024-08-22] MEDS ORDERED: Ondansetron ODT 4 MG TAB SL PRN (23:15)
[2024-08-22] MEDS ORDERED: Ondansetron PF 4 MG/2 ML Vial IVP PRN (23:15)
[2024-08-22] MEDS ORDERED: Bisacodyl 5 MG TAB PO PRN (23:22)
[2024-08-23] MEDS: cefTRIAXone\\ROCEPHIN 1 GM in Sodium Chloride 0.9% 100 ML IVPB SCH (00:40)
[2024-08-23] MEDS: Gabapentin 100 MG CAP PO SCH (00:41)
[2024-08-23] MEDS: hydrALAZINE 25 MG TAB PO SCH (00:41)
[2024-08-23 01:55] VITALS: BMI 25.9
[2024-08-23] MEDS: Levothyroxine Sodium 100 MCG TAB PO SCH (06:32)
[2024-08-23 08:25] LABS: #Basophils 0.04 10x3/uL (0.0-0.2); %Basophils 0.9 % (0.0-1.0); %Eosinophils 2.6 % (0.0-10.0); %Monocytes 9.3 % (0.0-10.0); %Neutrophils 69.5 % (42.0-75.0); Hematocrit 33.6 % (36.0-47.0); Hemoglobin 10.4 g/dL (12.0-16.0); Mean Corpuscular Hemoglobin 30.4 pg (27.0-31.0); Mean Corpuscular Volume 98.2 fL (78.0-98.0); Mean Platelet Volume 9.8 fL (7.4-10.4); Platelet Count 153 10x3/uL (130-400); RBC Distribution Width 15.5 % (11.5-14.5); Red Blood Cell (RBC) Count 3.42 mill/uL (4.20-5.40)
[2024-08-23 08:49] LABS: Anion Gap 15 mmol/L (10-20); BUN (Urea Nitrogen) 32 mg/dL (9.8-20.1); Calc. Creatinine Clearance 8 mL/min (70-130); Calcium 9.3 mg/dL (7.8-10.44); Carbon Dioxide 27 mmol/L (23-31); Chloride 102 mmol/L (98-107); Estimated GFR 5; Glucose 100 mg/dL (83-110); Potassium 3.8 mmol/L (3.5-5.1); Sodium 140 mmol/L (136-145)
[2024-08-23] MEDS: Aspirin Chewable 81 MG TAB PO SCH (10:30)
[2024-08-23] MEDS: Amlodipine 10 MG TAB PO SCH (10:30)
[2024-08-23] MEDS: Pantoprazole DR 40 MG TAB PO SCH (10:31)
[2024-08-23] MEDS: Hydrocortisone 10 mg Tablet PO SCH (13:43)
[2024-08-24] MEDS ORDERED: Heparin 10,000 UNITS/ 10 ML VIAL ONE (08:16)
[2024-08-24 14:45] VITALS: BMI 25.9
[2024-08-24] MEDS: LevoFLOXacin 250 MG TAB PO SCH (15:02)
[2024-08-24] MEDS: Sertraline 100 MG TAB PO SCH (20:25)
[2024-08-25] MEDS: Ondansetron PF 4 MG/2 ML Vial IVP PRN (06:00)
[2024-08-25] MEDS: FLU (Fluad Triv) TS24-25 (65UP)/MF59C/PF 45 MCG/0.5 ML Syringe IM ONE (08:29)
[2024-08-25 09:00] VITALS: BP 123/85; TEMP 97.9
== END 2024-08-25 15:45 | disposition home or self-care (01) | DRG 689 ==
LOC: ERS 17:08 → T4-A 20:26 → OBSVTOIN 08-24 16:12
PROVIDERS: ADMIT Internal Medicine; ATTEND Hospitalist
DX: N39.0 Urinary tract infection, site not specified (principal); G93.41 Metabolic encephalopathy; N18.6 End stage renal disease; E27.1 Primary adrenocortical insufficiency; I25.10 Atherosclerotic heart disease of native coronary artery without angina pectoris; E11.22 Type 2 diabetes mellitus with diabetic chronic kidney disease; E03.9 Hypothyroidism, unspecified; D63.1 Anemia in chronic kidney disease; F03.90 Unspecified dementia, unspecified severity, without behavioral disturbance, psychotic disturbance, mood disturbance, and anxiety; Z90.710 Acquired absence of both cervix and uterus; Z90.49 Acquired absence of other specified parts of digestive tract; Z99.2 Dependence on renal dialysis
CPT/HCPCS: 36415; 36416; 51701; 71045; 80048; 80053; 81001; 83605; 83880; 84484; 85025; 87077; 87086; 87186; 90935; 93005; 96374; 96376; G0257; G0378; J0696; J1644; J2405

== ENCOUNTER 2024-08-31 04:03 | Emergency (ER) | payer MEDICARE, BC ==
[2024-08-31] MEDS ORDERED: Docusate 100 MG CAP PO SCH (04:30)
[2024-08-31] MEDS ORDERED: Senokot 8.6 MG TAB PO SCH (04:45)
[2024-08-31] MEDS ORDERED: Magnesium Citrate 300 ML BOT ONE (05:25)
[2024-08-31] MEDS ORDERED: Lactulose 20 GM (30 mL) UDCUP ONE (06:55)
== END 2024-08-31 16:43 | disposition home or self-care (01) ==
LOC: ERS 04:03
DX: K59.00 Constipation, unspecified (principal); I25.10 Atherosclerotic heart disease of native coronary artery without angina pectoris; I13.2 Hypertensive heart and chronic kidney disease with heart failure and with stage 5 chronic kidney disease, or end stage renal disease; E11.22 Type 2 diabetes mellitus with diabetic chronic kidney disease; I50.9 Heart failure, unspecified; N18.6 End stage renal disease; E78.00 Pure hypercholesterolemia, unspecified; E03.9 Hypothyroidism, unspecified; Z99.2 Dependence on renal dialysis; Z79.82 Long term (current) use of aspirin; Z79.899 Other long term (current) drug therapy; Z79.890 Hormone replacement therapy; Z86.73 Personal history of transient ischemic attack (TIA), and cerebral infarction without residual deficits
CPT/HCPCS: 93005; 99283

== ENCOUNTER 2024-09-17 13:12 | Observation (INO) | payer MEDICARE, BC ==
[~2024-09-17 13:12] MED LIST: Iopamidol-370 76% 500 ML MDV (1 ML CHARGE) ONE
[2024-09-17 14:32] LABS: #Basophils 0.04 10x3/uL (0.0-0.2); %Basophils 0.8 % (0.0-1.0); %Lymphocytes 16.6 % (21.0-51.0); %Neutrophils 70.2 % (42.0-75.0); Hematocrit 35.5 % (36.0-47.0); Hemoglobin 11.6 g/dL (12.0-16.0); Mean Corpuscular HGB CONC 32.7 g/dL (32.0-36.0); Mean Corpuscular Hemoglobin 30.9 pg (27.0-31.0); Mean Corpuscular Volume 94.4 fL (78.0-98.0); Mean Platelet Volume 10.1 fL (7.4-10.4); Platelet Count 188 10x3/uL (130-400); RBC Distribution Width 14.6 % (11.5-14.5); Red Blood Cell (RBC) Count 3.76 mill/uL (4.20-5.40)
[2024-09-17 14:47] LABS: ALT (SGPT) 5 U/L (8-55); AST (SGOT) 8 U/L (5-34); Albumin 3.6 g/dL (3.4-4.8); Alkaline Phosphatase 99 U/L (40-110); Anion Gap 21 mmol/L (10-20); BUN (Urea Nitrogen) 88 mg/dL (9.8-20.1); Bilirubin, Total 0.4 mg/dL (0.2-1.2); Calc. Creatinine Clearance 0 mL/min (70-130); Calcium 9.3 mg/dL (7.8-10.44); Carbon Dioxide 22 mmol/L (23-31); Chloride 104 mmol/L (98-107); Estimated GFR 4; Globulin 3.1 g/dL (2.4-3.5); Glucose 91 mg/dL (83-110); Protein, Total 6.7 g/dL (5.8-8.1); Sodium 143 mmol/L (136-145)
[2024-09-17 14:53] LABS: Troponin I Less than 0.010 ng/mL (< 0.028)
[2024-09-17 15:02] LABS: Bacteria/HPF None Seen HPF (None Seen); Bilirubin Negative (Negative); Blood, Urine Negative (Negative); CAUTI Indications for Culture Alt mental st,lethar; Clarity Clear (Clear); Glucose, Urine (Dipstick) Normal (Negative); Ketone, Urine Negative (Negative); Leukocyte 75 Leu/uL (Negative); Nitrite Negative (Negative); Protein, Urine (Dipstick) 70 mg/dL (Neg-Trace); RBC/HPF 0-3 HPF (0-3); Specific Gravity, Urine 1.012 (1.002-1.036); Squamous Epithelial 0-3 HPF (0-3); Urobilinogen Normal mg/dL (Less than 2); WBC/HPF 0-3 HPF (0-3)
[2024-09-17 15:03] LABS: Urine Culture Reflex No No
[2024-09-17 16:12] LABS: Acetaminophen Less than 10 mcg/mL (Less than 10); Alcohol Less than 10.0 mg/dL (Less than 10); Salicylate Less than 8.0 mg/dL (Less than 8.0)
[2024-09-17 17:16] LABS: Amphetamine Not Detected (NotDetected); Barbiturates Screen Not Detected (NotDetected); Benzodiazepine Screen Not Detected (NotDetected); Cocaine Metabolite Screen Not Detected (NotDetected); Methadone Not Detected (NotDetected); Methamphetamine Not Detected (NotDetected); Opiate Screen Not Detected (NotDetected); Oxycodone Screen Not Detected (NotDetected); Phencyclidine (PCP) Not Detected (NotDetected); THC/Cannabinoid Screen Not Detected (NotDetected); Tricyclic Screen Not Detected (NotDetected)
[2024-09-17] MEDS ORDERED: Dextrose 5% in Water 1,000 ML IV PRN (19:40)
[2024-09-17] MEDS ORDERED: Dextrose 50% Abboject 50 ML SYRINGE SLOW IVP PRN (19:40)
[2024-09-17] MEDS ORDERED: Glucagon 1 MG/ML KIT IM PRN (19:40)
[2024-09-17] MEDS ORDERED: Ondansetron PF 4 MG/2 ML Vial IVP PRN (19:54)
[2024-09-17] MEDS ORDERED: Ondansetron ODT 4 MG TAB PO PRN (19:54)
[2024-09-17] MEDS ORDERED: Insulin Lispro 100 UNIT/ML 10 ML VIAL SC PRN (19:54)
[2024-09-17] MEDS ORDERED: Acetaminophen 650 MG Suppository PR PRN (19:54)
[2024-09-17] MEDS ORDERED: Acetaminophen 325 MG TAB PO PRN (19:54)
[2024-09-17] MEDS: Heparin 5,000 UNITS/ML VIAL SC SCH (20:39)
[2024-09-17] MEDS: hydrALAZINE 25 MG TAB PO SCH (20:39)
[2024-09-17 21:18] VITALS: BMI 24.8
[2024-09-18 08:18] LABS: Anion Gap 20 mmol/L (10-20); BUN (Urea Nitrogen) 93 mg/dL (9.8-20.1); Calc. Creatinine Clearance 7 mL/min (70-130); Calcium 8.7 mg/dL (7.8-10.44); Carbon Dioxide 19 mmol/L (23-31); Chloride 105 mmol/L (98-107); Estimated GFR 4; Glucose 126 mg/dL (83-110); Potassium 3.9 mmol/L (3.5-5.1); Sodium 140 mmol/L (136-145)
[2024-09-18 08:40] LABS: HBSAB Concentration 75.03 mIU/mL; HBsAg Index 0.34 S/CO (0-0.99); Hep B Core Total Ab NONREACTIVE (NonReactive); Hep B Core Total Index 0.34 S/CO (0-0.79); Hep B Surf AB REACTIVE (NonReactive); Hep B Surf Ag NONREACTIVE S/CO (NonReactive); Hep C IgG Ab NONREACTIVE S/CO (NonReactive); Hep C Index 0.14 S/CO (0-0.79)
[2024-09-18 08:42] LABS: #Basophils 0.05 10x3/uL (0.0-0.2); %Basophils 1.2 % (0.0-1.0); %Eosinophils 4.3 % (0.0-10.0); %Lymphocytes 18.3 % (21.0-51.0); %Monocytes 8.8 % (0.0-10.0); %Neutrophils 67.2 % (42.0-75.0); Hematocrit 30.2 % (36.0-47.0); Hemoglobin 10.1 g/dL (12.0-16.0); Mean Corpuscular HGB CONC 33.4 g/dL (32.0-36.0); Mean Corpuscular Hemoglobin 31.3 pg (27.0-31.0); Mean Corpuscular Volume 93.5 fL (78.0-98.0); Mean Platelet Volume 9.6 fL (7.4-10.4); Platelet Count 159 10x3/uL (130-400); RBC Distribution Width 14.6 % (11.5-14.5); Red Blood Cell (RBC) Count 3.23 mill/uL (4.20-5.40)
[2024-09-18] MEDS: Amlodipine 10 MG TAB PO SCH (09:00)
[2024-09-18] MEDS: Sucralfate 1 GM TAB PO SCH (09:00)
[2024-09-18] MEDS: Hydrocortisone 10 mg Tablet PO SCH (09:00)
[2024-09-18] MEDS ORDERED: Heparin 10,000 UNITS/ 10 ML VIAL ONE (09:53)
[2024-09-19 03:19] VITALS: TEMP 98.3
[2024-09-19 12:18] VITALS: BP 130/77
== END 2024-09-19 12:20 | disposition home or self-care (01) ==
LOC: ERS 13:12 → SUATTDRO 13:12 → SURG A 18:23
PROVIDERS: ADMIT Family Medicine; ATTEND Internal Medicine
DX: I12.0 Hypertensive chronic kidney disease with stage 5 chronic kidney disease or end stage renal disease (principal); N18.6 End stage renal disease; D63.1 Anemia in chronic kidney disease; Z99.2 Dependence on renal dialysis; E11.39 Type 2 diabetes mellitus with other diabetic ophthalmic complication; H40.9 Unspecified glaucoma; E11.22 Type 2 diabetes mellitus with diabetic chronic kidney disease; E78.00 Pure hypercholesterolemia, unspecified; R41.82 Altered mental status, unspecified; E03.9 Hypothyroidism, unspecified; F03.90 Unspecified dementia, unspecified severity, without behavioral disturbance, psychotic disturbance, mood disturbance, and anxiety; K85.90 Acute pancreatitis without necrosis or infection, unspecified; Z88.5 Allergy status to narcotic agent; Z79.899 Other long term (current) drug therapy; Z88.8 Allergy status to other drugs, medicaments and biological substances
CPT/HCPCS: 70450; 71045; 72125; 74177; 80048; 80306; 80307; 81001; 82140; 83605; 84484; 85025; 86704; 86706; 86803; 87040; 87340; 99285; G0378 ×4; J1644; Q9967; 36415; 80053; 84443

== ENCOUNTER 2024-09-24 09:07 | Emergency (ER) | payer MEDICARE, BC ==
[2024-09-24] MEDS ORDERED: HYDROcodone/Acetaminophen 5/325 mg Tablet ONE (10:29)
[2024-09-24] MEDS ORDERED: Heparin 10,000 UNITS/ 10 ML VIAL ONE (10:36)
[2024-09-24 10:57] LABS: #Basophils 0.03 10x3/uL (0.0-0.2); %Basophils 0.6 % (0.0-1.0); %Eosinophils 1.1 % (0.0-10.0); %Lymphocytes 11.4 % (21.0-51.0); %Monocytes 6.7 % (0.0-10.0); %Neutrophils 79.8 % (42.0-75.0); Hematocrit 33.3 % (36.0-47.0); Hemoglobin 10.4 g/dL (12.0-16.0); Mean Corpuscular HGB CONC 31.2 g/dL (32.0-36.0); Mean Corpuscular Hemoglobin 30.1 pg (27.0-31.0); Mean Corpuscular Volume 96.2 fL (78.0-98.0); Mean Platelet Volume 10.1 fL (7.4-10.4); Platelet Count 164 10x3/uL (130-400); RBC Distribution Width 14.6 % (11.5-14.5); Red Blood Cell (RBC) Count 3.46 mill/uL (4.20-5.40)
[2024-09-24 11:32] LABS: ALT (SGPT) Less than 5 U/L (8-55); AST (SGOT) 7 U/L (5-34); Albumin 3.4 g/dL (3.4-4.8); Alkaline Phosphatase 122 U/L (40-110); Anion Gap 18 mmol/L (10-20); BUN (Urea Nitrogen) 97 mg/dL (9.8-20.1); Bilirubin, Total 0.3 mg/dL (0.2-1.2); Calc. Creatinine Clearance 0 mL/min (70-130); Calcium 8.9 mg/dL (7.8-10.44); Carbon Dioxide 20 mmol/L (23-31); Chloride 109 mmol/L (98-107); Estimated GFR 4; Globulin 2.9 g/dL (2.4-3.5); Glucose 137 mg/dL (83-110); Potassium 5.2 mmol/L (3.5-5.1); Protein, Total 6.3 g/dL (5.8-8.1); Sodium 142 mmol/L (136-145)
[2024-09-24 15:29] LABS: Hep B Core Total Ab NONREACTIVE (NonReactive); Hep B Core Total Index 0.43 S/CO (0-0.79)
[2024-09-24 15:30] LABS: HBSAB Concentration 63.61 mIU/mL; Hep B Surf AB REACTIVE (NonReactive)
[2024-09-24 16:50] LABS: HBsAg Index 0.32 S/CO (0-0.99); Hep B Surf Ag NONREACTIVE S/CO (NonReactive); Hep C IgG Ab NONREACTIVE S/CO (NonReactive); Hep C Index 0.15 S/CO (0-0.79)
== END 2024-09-25 04:32 | disposition home or self-care (01) ==
LOC: ERS 09:07
DX: N17.9 Acute kidney failure, unspecified (principal); I13.2 Hypertensive heart and chronic kidney disease with heart failure and with stage 5 chronic kidney disease, or end stage renal disease; E11.22 Type 2 diabetes mellitus with diabetic chronic kidney disease; N18.6 End stage renal disease; I50.9 Heart failure, unspecified; Z99.2 Dependence on renal dialysis; I25.10 Atherosclerotic heart disease of native coronary artery without angina pectoris; Z79.82 Long term (current) use of aspirin; Z79.899 Other long term (current) drug therapy; R53.83 Other fatigue
CPT/HCPCS: 36415; 71250; 80053; 85025; 86704; 86706; 86803; 87340; 90935; G0257; J1644

== ENCOUNTER 2024-10-03 09:34 | Emergency (ER) | payer MEDICARE, BC ==
[2024-10-03 11:31] LABS: Bacteria/HPF 2+ HPF (None Seen); Bilirubin Negative (Negative); Blood, Urine 1+ (Negative); CAUTI Indications for Culture Pelvic or flank pain; Clarity Turbid (Clear); Glucose, Urine (Dipstick) Normal (Negative); Ketone, Urine Negative (Negative); Leukocyte 500 Leu/uL (Negative); Nitrite Negative (Negative); Protein, Urine (Dipstick) 200 mg/dL (Neg-Trace); Specific Gravity, Urine 1.012 (1.002-1.036); Squamous Epithelial 0-3 HPF (0-3); Urobilinogen Normal mg/dL (Less than 2); WBC/HPF Greater than 50 HPF (0-3); Yeast-Budding 2+ HPF (None Seen)
[2024-10-03 11:58] LABS: Urine Culture Reflex Yes Yes
[2024-10-03] MEDS ORDERED: Cefdinir 300 MG CAP PO SCH (13:45)
[2024-10-03 15:19] LABS: #Basophils Less than 0.03 10x3/uL (0.0-0.2); %Basophils 0.5 % (0.0-1.0); %Eosinophils 1.7 % (0.0-10.0); %Lymphocytes 13.9 % (21.0-51.0); %Monocytes 5.8 % (0.0-10.0); %Neutrophils 77.9 % (42.0-75.0); Hematocrit 29.1 % (36.0-47.0); Hemoglobin 9.4 g/dL (12.0-16.0); Mean Corpuscular HGB CONC 32.3 g/dL (32.0-36.0); Mean Corpuscular Hemoglobin 30.5 pg (27.0-31.0); Mean Corpuscular Volume 94.5 fL (78.0-98.0); Mean Platelet Volume 9.7 fL (7.4-10.4); Platelet Count 140 10x3/uL (130-400); RBC Distribution Width 14.4 % (11.5-14.5); Red Blood Cell (RBC) Count 3.08 mill/uL (4.20-5.40)
[2024-10-03 15:24] LABS: Anion Gap 17 mmol/L (10-20); BUN (Urea Nitrogen) 82 mg/dL (9.8-20.1); Calc. Creatinine Clearance 0 mL/min (70-130); Carbon Dioxide 19 mmol/L (23-31); Chloride 110 mmol/L (98-107); Estimated GFR 3; Glucose 92 mg/dL (83-110); Potassium 5.1 mmol/L (3.5-5.1); Sodium 141 mmol/L (136-145)
== END 2024-10-03 17:15 | disposition home or self-care (01) ==
LOC: ERS 09:34
DX: N39.0 Urinary tract infection, site not specified (principal); I13.2 Hypertensive heart and chronic kidney disease with heart failure and with stage 5 chronic kidney disease, or end stage renal disease; E11.22 Type 2 diabetes mellitus with diabetic chronic kidney disease; I50.9 Heart failure, unspecified; N18.6 End stage renal disease; I25.10 Atherosclerotic heart disease of native coronary artery without angina pectoris; E03.9 Hypothyroidism, unspecified; Z99.2 Dependence on renal dialysis
CPT/HCPCS: 36415; 70450; 80048; 81001; 85025; 87077; 87086; 87186

== ENCOUNTER 2024-11-05 03:19 | Inpatient (IN) | payer MEDICARE ==
[2024-11-05 07:03] LABS: Bacteria/HPF None Seen HPF (None Seen); Bilirubin Negative (Negative); Blood, Urine Trace (Negative); CAUTI Indications for Culture Dysuria,urgency,freq; Clarity Clear (Clear); Glucose, Urine (Dipstick) Normal (Negative); Ketone, Urine Negative (Negative); Leukocyte Negative Leu/uL (Negative); Nitrite Negative (Negative); Protein, Urine (Dipstick) 300 mg/dL (Neg-Trace); Specific Gravity, Urine 1.008 (1.002-1.036); Urobilinogen Normal mg/dL (Less than 2); WBC/HPF 0-3 HPF (0-3); pH, Urine 8.5 (5.0-9.0)
[2024-11-05 07:04] LABS: Urine Culture Reflex No No
[2024-11-05 07:09] LABS: Amphetamine Not Detected (NotDetected); Barbiturates Screen Not Detected (NotDetected); Benzodiazepine Screen Not Detected (NotDetected); Cocaine Metabolite Screen Not Detected (NotDetected); Methadone Not Detected (NotDetected); Methamphetamine Not Detected (NotDetected); Opiate Screen Not Detected (NotDetected); Oxycodone Screen Not Detected (NotDetected); Phencyclidine (PCP) Not Detected (NotDetected); THC/Cannabinoid Screen Not Detected (NotDetected); Tricyclic Screen Not Detected (NotDetected)
[2024-11-05 07:16] LABS: ALT (SGPT) Less than 7 U/L (Less than 34); AST (SGOT) 11 U/L (11-34); Acetaminophen Less than 10 mcg/mL (Less than 10); Albumin 3.5 g/dL (3.1-4.5); Alcohol Less than 10.0 mg/dL (Less than 10); Alkaline Phosphatase 122 U/L (40-110); Anion Gap 21 mmol/L (10-20); BUN (Urea Nitrogen) 43 mg/dL (9.8-20.1); Bilirubin, Total 0.5 mg/dL (0.3-1.2); Calc. Creatinine Clearance 0 mL/min (70-130); Calcium 9.1 mg/dL (7.8-10.44); Carbon Dioxide 24 mmol/L (23-31); Chloride 99 mmol/L (98-107); Estimated GFR 5; Globulin 3.2 g/dL (2.4-3.5); Glucose 123 mg/dL (83-110); Potassium 5.1 mmol/L (3.5-5.1); Protein, Total 6.7 g/dL (5.8-8.1); Salicylate Less than 8.0 mg/dL (Less than 8.0); Sodium 139 mmol/L (136-145)
[2024-11-05 07:49] LABS: Troponin I 0.032 ng/mL (< 0.028)
[2024-11-05] MEDS ORDERED: Acetaminophen 325 MG TAB PO PRN (08:40)
[2024-11-05] MEDS ORDERED: Glucagon 1 MG/ML KIT IM PRN (08:44)
[2024-11-05] MEDS ORDERED: Dextrose 5% in Water 1,000 ML IV PRN (08:44)
[2024-11-05] MEDS ORDERED: Insulin Lispro 100 UNIT/ML 10 ML VIAL SC PRN (08:44)
[2024-11-05] MEDS: Meropenem 1 GM in Sodium Chloride 0.9% 100 ML IVPB SCH (09:34)
[2024-11-05] MEDS: Vancomycin 1.5 GRAM/300 ML BAG 1.5 GM in Premix 1 BAG IVPB SCH (09:35)
[2024-11-05 13:45] LABS: Actual Bicarbonate (HCO3v) 22.8 mEq/L (22-28); Base Excess -0.7 mEq/L (-2.0 to +3.0); Calcium, Ionized (venous) 1.09 mmol/L (1.16-1.32); Chloride (VBG) 99 mmol/L (98-106); Hematocrit-VBG 32 % (36.0-47.0); Hemoglobin (Hb) 10.9 g/dL (11.7-16.1); Potassium (VBG) 4.92 mmol/L (3.70-5.30)
[2024-11-05 13:52] LABS: #Basophils 0.03 10x3/uL (0.0-0.2); #Eosinophils Less than 0.03 10x3/uL (0.0-0.7); %Basophils 0.4 % (0.0-1.0); %Lymphocytes 9.4 % (21.0-51.0); %Neutrophils 79.8 % (42.0-75.0); Hematocrit 30.9 % (36.0-47.0); Hemoglobin 9.7 g/dL (12.0-16.0); Mean Corpuscular HGB CONC 31.4 g/dL (32.0-36.0); Mean Corpuscular Hemoglobin 30.2 pg (27.0-31.0); Mean Corpuscular Volume 96.3 fL (78.0-98.0); Mean Platelet Volume 10.3 fL (7.4-10.4); Platelet Count 135 10x3/uL (130-400); RBC Distribution Width 15.6 % (11.5-14.5); Red Blood Cell (RBC) Count 3.21 mill/uL (4.20-5.40)
[2024-11-05 14:14] LABS: Macrocytosis SLIGHT = 6-15 cells HPF (0-5); Platelet Adequacy Comment Platelets Normal; Polychromasia SLIGHT = 2-3 cells HPF (0-2); Tear Drops SLIGHT = 2-5 cells HPF (0-1)
[2024-11-05] MEDS: Famotidine 20 MG TAB PO SCH (15:22)
[2024-11-05] MEDS: Heparin 5,000 UNITS/ML VIAL SC SCH (15:22)
[2024-11-05] MEDS: Cefepime 2 GM in Sodium Chloride 0.9% 100 ML IVPB SCH (16:23)
[2024-11-05] MEDS: Sucralfate 1 GM TAB PO SCH (16:37)
[2024-11-05] MEDS: Gabapentin 100 MG CAP PO SCH (22:03)
[2024-11-05] MEDS: hydrALAZINE 25 MG TAB PO SCH (22:04)
[2024-11-05] MEDS: Sertraline 100 MG TAB PO SCH (22:04)
[2024-11-06 04:05] LABS: #Basophils 0.05 10x3/uL (0.0-0.2); %Basophils 0.8 % (0.0-1.0); %Eosinophils 1.1 % (0.0-10.0); %Lymphocytes 12.5 % (21.0-51.0); %Monocytes 11.5 % (0.0-10.0); %Neutrophils 73.6 % (42.0-75.0); Hematocrit 29.9 % (36.0-47.0); Hemoglobin 9.2 g/dL (12.0-16.0); Mean Corpuscular HGB CONC 30.8 g/dL (32.0-36.0); Mean Corpuscular Hemoglobin 30.2 pg (27.0-31.0); Mean Platelet Volume 10.2 fL (7.4-10.4); Platelet Count 140 10x3/uL (130-400); RBC Distribution Width 15.7 % (11.5-14.5); Red Blood Cell (RBC) Count 3.05 mill/uL (4.20-5.40)
[2024-11-06 04:38] LABS: Anion Gap 22 mmol/L (10-20); BUN (Urea Nitrogen) 54 mg/dL (9.8-20.1); Calc. Creatinine Clearance 0 mL/min (70-130); Calcium 8.9 mg/dL (7.8-10.44); Carbon Dioxide 21 mmol/L (23-31); Chloride 104 mmol/L (98-107); Estimated GFR 5; Glucose 90 mg/dL (83-110); Potassium 5.7 mmol/L (3.5-5.1); Sodium 141 mmol/L (136-145)
[2024-11-06] MEDS: Vancomycin 1 GM in Sodium Chloride 0.9% 250 ML 300 ML IVPB SCH (09:00)
[2024-11-06] MEDS ORDERED: Vancomycin Dose by Levels Sliding Scale (Wt 71-99) FS SCH (09:15)
[2024-11-06] MEDS ORDERED: Acetaminophen 650 MG Suppository PR PRN (11:00)
[2024-11-06] MEDS: Pantoprazole 40 MG DR.TAB PO SCH (11:11)
[2024-11-06] MEDS: Hydrocortisone 10 mg Tablet PO SCH (11:11)
[2024-11-06] MEDS: Amlodipine 10 MG TAB PO SCH (11:11)
[2024-11-06] MEDS: Metoprolol Succinate XL 50 MG ER.TAB PO SCH (11:11)
[2024-11-06] MEDS: Famotidine 20 MG TAB PO SCH (11:11)
[2024-11-06] MEDS: Aspirin Chewable 81 MG TAB PO SCH (11:11)
[2024-11-06] MEDS: Acetaminophen 650 MG Suppository PR PRN (11:15)
[2024-11-06] MEDS ORDERED: Vancomycin Diaylsis Sliding Scale (Wt 71-99) FS SCH (14:30)
[2024-11-06] MEDS ORDERED: Iopamidol-370 76% 500 ML MDV (1 ML CHARGE) ONE (15:01)
[2024-11-06] MEDS: Lorazepam 2 MG/ML VIAL SLOW IVP SCH (19:42)
[2024-11-06 19:53] LABS: #Basophils 0.05 10x3/uL (0.0-0.2); %Eosinophils 1.6 % (0.0-10.0); %Lymphocytes 9.3 % (21.0-51.0); %Monocytes 11.1 % (0.0-10.0); %Neutrophils 76.6 % (42.0-75.0); Hematocrit 30.5 % (36.0-47.0); Hemoglobin 9.6 g/dL (12.0-16.0); Mean Corpuscular HGB CONC 31.5 g/dL (32.0-36.0); Mean Corpuscular Hemoglobin 30.5 pg (27.0-31.0); Mean Corpuscular Volume 96.8 fL (78.0-98.0); Mean Platelet Volume 9.9 fL (7.4-10.4); Platelet Count 142 10x3/uL (130-400); RBC Distribution Width 15.9 % (11.5-14.5); Red Blood Cell (RBC) Count 3.15 mill/uL (4.20-5.40)
[2024-11-06 20:25] LABS: Vancomycin, Trough 16.9 ug/mL
[2024-11-06 20:27] LABS: ALT (SGPT) Less than 7 U/L (Less than 34); AST (SGOT) 11 U/L (11-34); Albumin 3.2 g/dL (3.1-4.5); Alkaline Phosphatase 92 U/L (40-110); Anion Gap 19 mmol/L (10-20); BUN (Urea Nitrogen) 23 mg/dL (9.8-20.1); Bilirubin, Total 0.5 mg/dL (0.3-1.2); Calc. Creatinine Clearance 13 mL/min (70-130); Carbon Dioxide 24 mmol/L (23-31); Chloride 102 mmol/L (98-107); Estimated GFR 9; Globulin 3.2 g/dL (2.4-3.5); Glucose 75 mg/dL (83-110); Lactic Acid 0.96 mmol/L (0.50-2.20); Magnesium 1.9 mg/dL (1.6-2.6); Protein, Total 6.4 g/dL (5.8-8.1); Sodium 141 mmol/L (136-145)
[2024-11-06] MEDS: levETIRAcetam 500 MG (5 mL) VIAL SLOW IVP SCH ×2 (20:31→23:27)
[2024-11-06] MEDS: Lorazepam 2 MG/ML VIAL ONE (20:59)
[2024-11-06] MEDS: Lorazepam 2 MG/ML VIAL SLOW IVP PRN (21:55)
[2024-11-06] MEDS: Vancomycin HCl 750 MG in Sodium Chloride 0.9% 250 ML 250 ML IVPB SCH (22:17)
[2024-11-07] MEDS: Cefepime 1 GM in Sodium Chloride 0.9% 100 ML IVPB SCH (00:02)
[2024-11-07 06:01] LABS: #Basophils 0.03 10x3/uL (0.0-0.2); %Basophils 0.6 % (0.0-1.0); %Eosinophils 2.1 % (0.0-10.0); %Lymphocytes 13.3 % (21.0-51.0); %Monocytes 16.4 % (0.0-10.0); %Neutrophils 66.6 % (42.0-75.0); Hematocrit 31.1 % (36.0-47.0); Hemoglobin 9.8 g/dL (12.0-16.0); Mean Corpuscular HGB CONC 31.5 g/dL (32.0-36.0); Mean Corpuscular Hemoglobin 30.1 pg (27.0-31.0); Mean Corpuscular Volume 95.4 fL (78.0-98.0); Mean Platelet Volume 10.3 fL (7.4-10.4); Platelet Count 114 10x3/uL (130-400); RBC Distribution Width 15.9 % (11.5-14.5); Red Blood Cell (RBC) Count 3.26 mill/uL (4.20-5.40)
[2024-11-07 06:17] LABS: Anion Gap 20 mmol/L (10-20); BUN (Urea Nitrogen) 28 mg/dL (9.8-20.1); Calc. Creatinine Clearance 11 mL/min (70-130); Calcium 8.8 mg/dL (7.8-10.44); Carbon Dioxide 21 mmol/L (23-31); Chloride 104 mmol/L (98-107); Estimated GFR 7; Glucose 65 mg/dL (83-110); Potassium 4.5 mmol/L (3.5-5.1); Sodium 140 mmol/L (136-145)
[2024-11-07] MEDS: Divalproex Sodium 125 mg Sprinkle Capsule PO SCH (10:10)
[2024-11-07] MEDS ORDERED: Labetalol HCl 100 MG/20 ML VIAL SLOW IVP PRN (14:01)
[2024-11-07] MEDS: Dextrose 50% Abboject 50 ML SYRINGE SLOW IVP PRN (20:53)
[2024-11-08 06:02] LABS: #Basophils 0.05 10x3/uL (0.0-0.2); %Basophils 0.9 % (0.0-1.0); %Eosinophils 2.2 % (0.0-10.0); %Lymphocytes 15.3 % (21.0-51.0); %Monocytes 19.3 % (0.0-10.0); %Neutrophils 61.8 % (42.0-75.0); Hemoglobin 11.3 g/dL (12.0-16.0); Mean Corpuscular HGB CONC 30.5 g/dL (32.0-36.0); Mean Corpuscular Hemoglobin 30.7 pg (27.0-31.0); Mean Corpuscular Volume 100.5 fL (78.0-98.0); Platelet Count 160 10x3/uL (130-400); RBC Distribution Width 16.2 % (11.5-14.5); Red Blood Cell (RBC) Count 3.68 mill/uL (4.20-5.40)
[2024-11-08 06:27] LABS: Anion Gap 21 mmol/L (10-20); BUN (Urea Nitrogen) 35 mg/dL (9.8-20.1); Calc. Creatinine Clearance 9 mL/min (70-130); Calcium 9.2 mg/dL (7.8-10.44); Carbon Dioxide 19 mmol/L (23-31); Chloride 104 mmol/L (98-107); Estimated GFR 6; Glucose 66 mg/dL (83-110); Potassium 4.9 mmol/L (3.5-5.1); Sodium 139 mmol/L (136-145)
[2024-11-08] MEDS ORDERED: hydrALAZINE 20 MG/ML VIAL SLOW IVP PRN (10:24)
[2024-11-08] MEDS: Dextrose 5 % And 0.9 % NaCl 1,000 ML IV SCH (10:32)
[2024-11-08] MEDS: Lacosamide 200 MG in Sodium Chloride 0.9% 50 ML IVPB SCH (11:00)
[2024-11-08] MEDS: levETIRAcetam 500 MG (5 mL) VIAL SLOW IVP SCH ×2 (11:29→21:59)
[2024-11-08] MEDS: Labetalol HCl 100 MG/20 ML VIAL SLOW IVP PRN (12:23)
[2024-11-08] MEDS: methylPREDNISolone Sod Succ 40 MG VIAL IVP SCH ×2 (13:12→21:59)
[2024-11-08] MEDS: FLU (Fluad Triv) TS24-25 (65UP)/MF59C/PF 45 MCG/0.5 ML Syringe IM ONE (16:21)
[2024-11-08] MEDS ORDERED: PROPOFOL 200 MG/20 ML VIAL ONE (22:44)
[2024-11-08] MEDS ORDERED: Rocuronium Bromide 10 MG/ML (10ML VIAL) ONE (22:44)
[2024-11-08] MEDS ORDERED: Midazolam In 0.9 % NaCl/PF 100 ML IVPB SCH (23:00)
[2024-11-08] MEDS ORDERED: Propofol BOLUS 1,000 MG/100 ML VIAL IV PRN (23:15)
[2024-11-08] MEDS ORDERED: Fentanyl BOLUS 250 ML IVPB PRN (23:15)
[2024-11-08] MEDS ORDERED: Lorazepam 2 MG/ML VIAL SLOW IVP PRN (23:15)
[2024-11-08] MEDS ORDERED: Propofol 1,000 MG/100 ML VIAL IV PRN (23:15)
[2024-11-08] MEDS ORDERED: Morphine 2 MG/ML VIAL SLOW IVP PRN (23:15)
[2024-11-08] MEDS ORDERED: DISCONTINUE PREVIOUS NARCOTIC PAIN MEDICATIONS AND BENZODIAZEPINES FS SCH (23:15)
[2024-11-09] MEDS: Lacosamide 100 MG in Sodium Chloride 0.9% 50 ML IVPB SCH (00:05)
[2024-11-09] MEDS: Fentanyl CADD 100 ML IV SCH (01:19)
[2024-11-09] MEDS: Rocuronium Bromide 10 MG/ML (10ML VIAL) IVP SCH (01:24)
[2024-11-09] MEDS: Propofol 1,000 MG/100 ML VIAL IV STA (01:26)
[2024-11-09] MEDS: Ventilator Sedation Protocol 1 EACH FS ONE (01:28)
[2024-11-09 06:23] LABS: #Basophils Less than 0.03 10x3/uL (0.0-0.2); #Eosinophils Less than 0.03 10x3/uL (0.0-0.7); %Basophils 0.1 % (0.0-1.0); %Lymphocytes 5.3 % (21.0-51.0); %Monocytes 4.6 % (0.0-10.0); %Neutrophils 89.3 % (42.0-75.0); Hematocrit 31.6 % (36.0-47.0); Hemoglobin 10.4 g/dL (12.0-16.0); Mean Corpuscular HGB CONC 32.9 g/dL (32.0-36.0); Mean Corpuscular Hemoglobin 30.6 pg (27.0-31.0); Mean Corpuscular Volume 92.9 fL (78.0-98.0); Mean Platelet Volume 9.8 fL (7.4-10.4); Platelet Count 180 10x3/uL (130-400); RBC Distribution Width 16.4 % (11.5-14.5)
[2024-11-09 07:01] LABS: Anion Gap 19 mmol/L (10-20); BUN (Urea Nitrogen) 46 mg/dL (9.8-20.1); Calc. Creatinine Clearance 8 mL/min (70-130); Calcium 8.9 mg/dL (7.8-10.44); Carbon Dioxide 17 mmol/L (23-31); Chloride 109 mmol/L (98-107); Estimated GFR 5; Glucose 179 mg/dL (83-110); Potassium 4.3 mmol/L (3.5-5.1); Sodium 141 mmol/L (136-145)
[2024-11-09 08:17] LABS: Actual Bicarbonate (HCO3a) 19.3 mEq/L (22-28); Base Excess (BEa) -0.8 mEq/L (-2.0 to +3.0); Calcium, Ionized (arterial) 1.12 mmol/L (1.12-1.30); Carboxyhemoglobin (COHb) 0.5 gm% (0.0-3.0); Hematocrit-ABG 32 % (36.0-47.0); Hemoglobin (Hb) 10.8 g/dL (12.0-16.0); O2 Tension (PaO2), arterial 209.9 mmHg (> 70.0); Potassium - ABG Lab 4.08 mmol/L (3.70-5.30)
[2024-11-09 08:19] LABS: ALV-art Gradient 49.925 mmHg (0-20); Puncture Site LINE
[2024-11-09 11:51] VITALS: BMI 25.3
[2024-11-09] MEDS: Valproate Sodium 1,000 MG in Sodium Chloride 0.9% 100 ML IVPB SCH (13:17)
[2024-11-09] MEDS: Valproate Sodium 500 MG/5 ML VIAL IVPB SCH (13:52)
[2024-11-09 14:16] LABS: Actual Bicarbonate (HCO3a) 19.1 mEq/L (22-28); Base Excess (BEa) -3.3 mEq/L (-2.0 to +3.0); CO2 Tension 26.1 mmHg (35.0-45.0); Calcium, Ionized (arterial) 1.16 mmol/L (1.12-1.30); Carboxyhemoglobin (COHb) 0.3 gm% (0.0-3.0); Hematocrit-ABG 31 % (36.0-47.0); Hemoglobin (Hb) 10.4 g/dL (12.0-16.0); O2 Tension (PaO2), arterial 210.1 mmHg (> 70.0); pH, Arterial 7.482 (7.35-7.45)
[2024-11-09 14:17] LABS: Puncture Site ALINE
[2024-11-09 14:23] LABS: ALV-art Gradient 42.475 mmHg (0-20)
[2024-11-09] MEDS: EPOETIN ALFA-EPBX (ESRD) 10,000 UNITS/ML VIAL IVP SCH (16:08)
[2024-11-10] MEDS: Valproate Sodium 1,000 MG in Sodium Chloride 0.9% 100 ML IVPB SCH (00:18)
[2024-11-10] MEDS: Scopolamine 1 mg/72 hour Patch TD SCH (04:04)
[2024-11-10 04:28] LABS: #Basophils 0.03 10x3/uL (0.0-0.2); %Basophils 0.4 % (0.0-1.0); %Eosinophils 0.6 % (0.0-10.0); %Lymphocytes 9.1 % (21.0-51.0); %Monocytes 8.7 % (0.0-10.0); %Neutrophils 79.5 % (42.0-75.0); Mean Corpuscular HGB CONC 32.1 g/dL (32.0-36.0); Mean Corpuscular Hemoglobin 30.8 pg (27.0-31.0); Mean Corpuscular Volume 95.9 fL (78.0-98.0); Mean Platelet Volume 9.7 fL (7.4-10.4); Platelet Count 125 10x3/uL (130-400); RBC Distribution Width 17.2 % (11.5-14.5); Red Blood Cell (RBC) Count 2.92 mill/uL (4.20-5.40)
[2024-11-10 04:50] LABS: Anion Gap 16 mmol/L (10-20); BUN (Urea Nitrogen) 20 mg/dL (9.8-20.1); Calc. Creatinine Clearance 13 mL/min (70-130); Calcium 8.4 mg/dL (7.8-10.44); Carbon Dioxide 24 mmol/L (23-31); Chloride 106 mmol/L (98-107); Estimated GFR 9; Glucose 116 mg/dL (83-110); Potassium 3.6 mmol/L (3.5-5.1); Sodium 142 mmol/L (136-145)
[2024-11-10 09:11] LABS: CO2 Tension 20.3 mmHg (35.0-45.0); pH, Arterial 7.597 (7.35-7.45)
[2024-11-10] MEDS: Metoprolol Tartrate 25 MG TAB PO SCH ×2 (12:01→20:56)
[2024-11-10] MEDS: Pantoprazole 40 MG VIAL IVP SCH (12:01)
[2024-11-11 04:43] LABS: #Basophils Less than 0.03 10x3/uL (0.0-0.2); %Basophils 0.3 % (0.0-1.0); %Eosinophils 1.6 % (0.0-10.0); %Lymphocytes 8.3 % (21.0-51.0); %Monocytes 6.1 % (0.0-10.0); %Neutrophils 82.5 % (42.0-75.0); Hematocrit 30.6 % (36.0-47.0); Hemoglobin 9.9 g/dL (12.0-16.0); Mean Corpuscular HGB CONC 32.4 g/dL (32.0-36.0); Mean Corpuscular Volume 95.9 fL (78.0-98.0); Mean Platelet Volume 9.5 fL (7.4-10.4); Platelet Count 128 10x3/uL (130-400); RBC Distribution Width 17.2 % (11.5-14.5); Red Blood Cell (RBC) Count 3.19 mill/uL (4.20-5.40)
[2024-11-11 05:15] LABS: Anion Gap 16 mmol/L (10-20); BUN (Urea Nitrogen) 31 mg/dL (9.8-20.1); Calc. Creatinine Clearance 11 mL/min (70-130); Calcium 8.1 mg/dL (7.8-10.44); Carbon Dioxide 22 mmol/L (23-31); Chloride 108 mmol/L (98-107); Estimated GFR 7; Glucose 113 mg/dL (83-110); Potassium 3.8 mmol/L (3.5-5.1); Sodium 142 mmol/L (136-145)
[2024-11-11] MEDS: Pantoprazole 40 MG VIAL IVP SCH (10:19)
[2024-11-11] MEDS: Albumin 25% 25 GM (100 mL) BOT IVPB SCH (13:52)
[2024-11-11] MEDS: NOREPINEPHRINE 8 MG/250 ML-D5W 250 ML ONE (19:50)
[2024-11-11] MEDS: levETIRAcetam 500 MG (5 mL) VIAL SLOW IVP SCH (20:24)
[2024-11-12 05:05] LABS: Anion Gap 12 mmol/L (10-20); BUN (Urea Nitrogen) 21 mg/dL (9.8-20.1); Calc. Creatinine Clearance 18 mL/min (70-130); Calcium 9.2 mg/dL (7.8-10.44); Carbon Dioxide 26 mmol/L (23-31); Chloride 106 mmol/L (98-107); Estimated GFR 12; Glucose 130 mg/dL (83-110); Potassium 3.7 mmol/L (3.5-5.1); Sodium 140 mmol/L (136-145)
[2024-11-12 05:20] LABS: #Basophils Less than 0.03 10x3/uL (0.0-0.2); %Basophils 0.2 % (0.0-1.0); %Eosinophils 1.3 % (0.0-10.0); %Lymphocytes 5.7 % (21.0-51.0); %Monocytes 7.7 % (0.0-10.0); %Neutrophils 83.7 % (42.0-75.0); Hematocrit 30.8 % (36.0-47.0); Hemoglobin 9.6 g/dL (12.0-16.0); Mean Corpuscular HGB CONC 31.2 g/dL (32.0-36.0); Mean Corpuscular Volume 96.3 fL (78.0-98.0); Mean Platelet Volume 10.4 fL (7.4-10.4); Platelet Count 112 10x3/uL (130-400); RBC Distribution Width 17.2 % (11.5-14.5)
[2024-11-13 00:26] VITALS: BP 130/55
[2024-11-13 01:41] VITALS: TEMP 98.6
[2024-11-13] MEDS ORDERED: Lansoprazole 30 MG/10 ML UDCUP PER TUBE SCH (09:00)
== END 2024-11-13 01:45 | disposition hospice, inpatient (51) | DRG 100 ==
LOC: ERS 03:19 → SUATTDRO 03:19 → ERHOLD 08:19 → PCU 15:00 → IMCU/EMU 11-06 20:29 → CCU 11-08 22:19
PROVIDERS: ADMIT Family Medicine; ATTEND Family Medicine
PROC: XX20X89 Monitoring of Brain Electrical Activity, Computer-aided Detection and Notification, New Technology Group 9 (ICD-10-PCS; principal; 2024-11-07)
PROC: 4A133R1 Monitoring of Arterial Saturation, Peripheral, Percutaneous Approach (ICD-10-PCS; 2024-11-09)
PROC: 0BH17EZ Insertion of Endotracheal Airway into Trachea, Via Natural or Artificial Opening (ICD-10-PCS; 2024-11-09)
PROC: 5A1945Z Respiratory Ventilation, 24-96 Consecutive Hours (ICD-10-PCS; 2024-11-09)
PROC: 3E033XZ Introduction of Vasopressor into Peripheral Vein, Percutaneous Approach (ICD-10-PCS; 2024-11-11)
PROC: 30233J1 Transfusion of Nonautologous Serum Albumin into Peripheral Vein, Percutaneous Approach (ICD-10-PCS; 2024-11-11)
DX: G40.901 Epilepsy, unspecified, not intractable, with status epilepticus (principal); A41.9 Sepsis, unspecified organism; G93.41 Metabolic encephalopathy; N18.6 End stage renal disease; I50.9 Heart failure, unspecified; Z66 Do not resuscitate; Z51.5 Encounter for palliative care; E11.22 Type 2 diabetes mellitus with diabetic chronic kidney disease; F32.A Depression, unspecified; I65.22 Occlusion and stenosis of left carotid artery; G93.89 Other specified disorders of brain; I25.10 Atherosclerotic heart disease of native coronary artery without angina pectoris; E87.5 Hyperkalemia; D63.1 Anemia in chronic kidney disease; E03.9 Hypothyroidism, unspecified; F01.A0 Vascular dementia, mild, without behavioral disturbance, psychotic disturbance, mood disturbance, and anxiety; Z88.5 Allergy status to narcotic agent; Z98.890 Other specified postprocedural states; Z90.89 Acquired absence of other organs; Z90.5 Acquired absence of kidney; Z99.2 Dependence on renal dialysis
CPT/HCPCS: 36415; 36416; 70450; 70496; 70498; 70551; 71045; 80048; 80053; 80202; 80306; 80307; 81001; 82140; 82805; 83605; 83735; 84145; 84146; 84443; 84484; 85025; 86850; 86900; 86901; 87040; 87428; 90653; 90935; 93005; 94002; 94003; 94760; 95705; C9254; G0257; J0692; J1644; J1953; J2060; J2185; J2250; J2470; J2704; J2919; J3010; J3370; J7042; J7050; J7999; P9047; Q5105; Q9967

== ENCOUNTER 2024-11-13 01:43 | Inpatient (IN) | payer OTHER ==
[2024-11-13] MEDS ORDERED: Bisacodyl 10 MG SUPP PR PRN (02:00)
[2024-11-13] MEDS ORDERED: Ondansetron PF 4 MG/2 ML Vial IVP PRN (02:00)
[2024-11-13] MEDS ORDERED: Lorazepam 2 MG/ML VIAL SLOW IVP PRN (02:00)
[2024-11-13] MEDS: Lorazepam 2 MG/ML VIAL SLOW IVP SCH (02:09)
[2024-11-13] MEDS: HYDROmorphone 0.5 MG/0.5 ML SYRINGE SLOW IVP PRN (02:09)
[2024-11-13 09:28] VITALS: BMI 24.8
[2024-11-14] MEDS: HYDROmorphone 0.5 MG/0.5 ML SYRINGE SLOW IVP PRN (02:11)
[2024-11-14] MEDS: Lorazepam 2 MG/ML VIAL SLOW IVP SCH (10:30)
[2024-11-14] MEDS: Scopolamine 1 mg/72 hour Patch TOP PRN (15:31)
[2024-11-15] MEDS: Glycopyrrolate 0.4 MG/ 2 ML VIAL SLOW IVP PRN (16:43)
[2024-11-17 10:34] VITALS: BMI 24.8
[2024-11-18] MEDS ORDERED: Atropine Sulfate 1% Ophth Soln 5 ml Bottle SL PRN (11:02)
[2024-11-18] MEDS: Scopolamine 1 mg/72 hour Patch TOP SCH (12:53)
[2024-11-18] MEDS: HYDROmorphone 2 MG/ML VIAL SLOW IVP SCH (12:54)
[2024-11-18 19:48] VITALS: BP 125/85; TEMP 97.9
== END 2024-11-19 07:51 | disposition expired | DRG 951 ==
LOC: CCU 01:43 → MSONC 10:08
PROVIDERS: ADMIT Family Medicine; ATTEND Family Medicine
DX: Z51.5 Encounter for palliative care (principal); N18.6 End stage renal disease; A41.9 Sepsis, unspecified organism; I13.2 Hypertensive heart and chronic kidney disease with heart failure and with stage 5 chronic kidney disease, or end stage renal disease; E11.22 Type 2 diabetes mellitus with diabetic chronic kidney disease; I50.9 Heart failure, unspecified; Z88.8 Allergy status to other drugs, medicaments and biological substances; E78.00 Pure hypercholesterolemia, unspecified; F03.90 Unspecified dementia, unspecified severity, without behavioral disturbance, psychotic disturbance, mood disturbance, and anxiety; Z99.2 Dependence on renal dialysis; Z98.890 Other specified postprocedural states; Z90.710 Acquired absence of both cervix and uterus; I25.10 Atherosclerotic heart disease of native coronary artery without angina pectoris; Z79.899 Other long term (current) drug therapy
CPT/HCPCS: J1171; J2060